=== PATIENT | female | born 1940 | race Caucasian/White ===

== ENCOUNTER 2023-04-16 09:33 | Outpatient (OUT) | payer MEDICARE, SELFPAY ==
--- NOTE | 2023-04-16 09:36 | XR_ITS ---
[address] [address] Patient Name: JEANNE WEEMS MRN: [id number] date: 1940 Sex: F Assigned Patient Location: RAD Current Patient Location: RAD Accession/Order Number: [id number] Exam Date: 04/16/2023 10:00 Report Date: 04/16/2023 10:31 At the request of: MORENA FELIPE Procedure: XR DEXA axial skeleton EXAMINATION: XR DEXA axial skeleton HISTORY: Osteoporosis M81.0 COMPARISON: DEXA bone densitometry 06/09/2020 TECHNIQUE: Dual-energy X-ray absorptiometry (DXA) was performed. FINDINGS: SPINE ANALYSIS: Average bone mineral density is 1.434 g/cm2. T-score (standard deviation relative to young adult mean): 2.1 . +4.6% change since prior study. HIP ANALYSIS: Lowest bone mineral density is within the left femoral neck, 1.009 g/cm2. T-score (standard deviation relative to young adult mean): -0.2 . -0.6% change since prior study. XR/XR DEXA axial skeleton IMPRESSION: [employer] Classification: Normal - Low Fracture Risk Electronically authenticated by: KAMRAN MONTENEGRO Date: 04/16/2023 10:31
== END 2023-04-16 09:34 | disposition home or self-care (01) ==
LOC: RAD 09:33
PROVIDERS: PCP Internal Medicine; Visit Provider Internal Medicine
DX: M81.0 Age-related osteoporosis without current pathological fracture (principal)
CPT/HCPCS: 77080

== ENCOUNTER 2023-06-21 09:33 | Outpatient (OUT) | payer MEDICARE, MEDICAID, SELFPAY ==
--- NOTE | 2023-06-21 09:38 | US_ITS ---
The [address] [address] Patient Name: JEANNE WEEMS MRN: [id number] date: 1940 Sex: F Assigned Patient Location: US Current Patient Location: Accession/Order Number: [id number] Exam Date: 06/21/2023 09:45 Report Date: 06/22/2023 16:35 At the request of: AGNES BRIGGS Procedure: US renal BI EXAM: Renal and bladder ultrasound CLINICAL INDICATION: Renal Cyst N28.1, Personal History Of Kidney Cancer Z85.528. COMPARISON: MRI dated 05/25/2022 TECHNIQUE: Grayscale and color Doppler imaging was obtained of both kidneys. FINDINGS: RIGHT: Mild right hydronephrosis. Cortical echogenicity and thickness is preserved. The kidney measures 8.5 cm length. No sonographically evident renal calculi. Hyperechoic right renal parenchyma lesion measures up to 7 mm. 1 cm right renal cyst. LEFT: No hydronephrosis. Cortical echogenicity and thickness is preserved. The kidney measures 12.8 cm length. No sonographically evident renal calculi. Hyperechoic left renal parenchyma lesion measuring up to 7 mm in maximal dimension. Additional hypoechoic left renal parenchymal lesion measuring up to 8 mm in maximal dimension. Bladder: No obvious sonographic abnormality. US/US renal BI IMPRESSION: 1. Mild right hydronephrosis. 2. 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 Electronically authenticated by: MARIALUISA HSIEH Date: 06/22/2023 16:35
== END 2023-06-21 09:34 | disposition home or self-care (01) ==
LOC: US 09:33
PROVIDERS: PCP Internal Medicine; Visit Provider Urology
DX: N28.1 Cyst of kidney, acquired (principal); Z85.528 Personal history of other malignant neoplasm of kidney; Q62.5 Duplication of ureter; N13.30 Unspecified hydronephrosis; R93.421 Abnormal radiologic findings on diagnostic imaging of right kidney; R93.422 Abnormal radiologic findings on diagnostic imaging of left kidney
CPT/HCPCS: 76775

== ENCOUNTER 2023-07-23 06:40 | Day surgery (SDC) | payer MEDICARE, MEDICAID, SELFPAY ==
--- NOTE | 2023-07-23 08:15 | P.URON_ITS ---
Urology Surgery Operative Note Operative Note Procedure Date: 07/23/23 Time Out Performed: yes Pre-op Diagnosis: recurrent urinary infections. Post-op Diagnosis: same as pre-op Procedures performed: #1. Cystoscopy. Anesthesia: local Primary Surgeon: Angel Bob Complications: none Estimated blood loss (mL): 0 Findings: bladder with no tumors. oPEN DDIVERTICULI. nO kwan. gRADE 2 rectocele. Specimens: NONE Indications for Procedures: THIS LADY HAS BEEN GETTING RECURRENT URINARY INFECTIONS. She has had a few courses of antibiotics. Currently, and she is without infection and symptom free. sHE NOW PRESENTS FOR CYSTOSCOPY AND POSSIBLE URETHRAL DILATION. She salcido signed an informed consent after risks were explained. Detailed description of Procedure: patient was kept on the gurney bed and brought into the endoscopy suite. She was in the supine position. hER LEGS WERE FROG LEGGED. Her perineum and genitalia were sterilely prepped and draped in the usual fashion. tIMEOUT WAS done by all parties in the room. wE ALL AGREED UPON THE PATIENT'S IDENTIFICATION AND THE PLANNED PROCEEDURES FOR THIS PATIENT. 2 PERCEENT LIDOCAINE WAS PASSED PER UR ETHRA. i STARTED BY PASSING A FLEXIBLE CYSTOSCOPE PER URETHRA AND INTO THE BLADDER. The urethra was unremarkable. pANENDOSCOPY IN THE BLADDER SHOWED NO EVIDENCE OF ANY TUMORS OR STONES. There were no mucosal lesions noted. She had open diverticuli. Her bladder wall appeared very thin. There were no cystitis cystica lesions noted. The scope was then removed. With Valsalva maneuver she had no KWAN. sHE HAS A GRADE 2 rectocele. sHE DOES NOT HAVE ANY ATROPHIC VAGINITIS. She was then discharged to home.
[2023-07-23 08:16] VITALS: BP 170/80; BP 171/75; PULSE 74; PULSE 84; RESP 18; O2SAT 94; O2SAT 95
[2023-07-23] MEDS: LIDOCAINE 2% JELLY 10 ML UR ×2 (08:30)
== END 2023-07-23 08:30 | disposition home or self-care (01) ==
PROVIDERS: PCP Internal Medicine; Visit Provider Urology
PROC: (CPT 52000; principal; 2023-07-23 07:45)
DX: N13.30 Unspecified hydronephrosis (principal); N28.1 Cyst of kidney, acquired; E11.9 Type 2 diabetes mellitus without complications; J45.909 Unspecified asthma, uncomplicated; I10 Essential (primary) hypertension; R39.9 Unspecified symptoms and signs involving the genitourinary system; Z87.440 Personal history of urinary (tract) infections; N81.6 Rectocele; N32.3 Diverticulum of bladder
CPT/HCPCS: 52000

== ENCOUNTER 2023-11-20 11:03 | Outpatient (OUT) | payer MEDICARE, MEDICAID, SELFPAY ==
--- NOTE | 2023-11-20 11:08 | MR_ITS ---
The [place] [id number] Patient Name: JEANNE WEEMS MRN: [id number] date: 1940 Sex: F Assigned Patient Location: MRI Current Patient Location: MRI Accession/Order Number: [id number] Exam Date: 11/20/2023 11:30 Report Date: 11/20/2023 13:35 At the request of: LALITO CASH Procedure: MR knee LT wo con EXAM: MR knee LT wo con REASON FOR EXAM: Internal Derangement Of Left Knee. TECHNIQUE: Multiplanar, multisequence imaging of the left knee was performed without contrast COMPARISON: Radiograph 11/21/2021. FINDINGS: Laterally, the iliotibial band, fibular collateral ligament, popliteus tendon and biceps tendon are intact. The ACL is intact. The lateral meniscus demonstrates free edge radial tear of the lateral meniscal body propagating is horizontal tear into the posterior horn. Intermediate grade chondrosis of the lateral compartment. Medially, the medial collateral ligament is bowed with periligamentous edema, likely reactive. The PCL is intact. Diffuse globular intrasubstance signal is present involving the medial meniscus. There is incomplete radial tear involving the posterior horn near the root horn attachment. Probable displaced meniscal fragment is noted within the posterior intercondylar notch. Diffuse high-grade chondrosis of the medial compartment. The extensor mechanism is intact. Intermediate to high-grade chondrosis of the patellofemoral cartilage. The bone marrow signal is without fracture. Small joint effusion with synovial thickening is present consistent with synovitis. This decompresses into a partially ruptured Courtney's cyst. The regional musculature is without muscle strain or tendon tear. MR/MR knee LT wo con IMPRESSION: 1. Near complete radial tear of the posterior horn root attachment of the medial meniscus. 2. Lateral meniscus tear. 3. 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 4. Joint effusion, synovitis and partially ruptured Courtney's cyst Electronically authenticated by: ANA MARKHAM Date: 11/20/2023 13:35
== END 2023-11-20 11:04 | disposition home or self-care (01) ==
LOC: MRI 11:03
PROVIDERS: PCP Internal Medicine; Visit Provider Orthopaedic Surgery
DX: M23.92 Unspecified internal derangement of left knee (principal); S83.242A Other tear of medial meniscus, current injury, left knee, initial encounter; S83.282A Other tear of lateral meniscus, current injury, left knee, initial encounter; M25.462 Effusion, left knee
CPT/HCPCS: 73721

== ENCOUNTER 2024-07-18 11:27 | Outpatient (OUT) | payer MEDICARE, MEDICAID, SELFPAY ==
--- OUTSIDE RECORDS SUMMARY | 2024-07-18 11:35 | XMS_ITS | CCD ---
Author Organization [facility] CliniSyvt Care Team Providers Care Station Agent Name Role Phone EDUARDO ROSEN Primary Care Physician [phone] DR EDUARDO ROSEN Primary Care Unavailable DESTINEE, DR BERG Consulting Unavailable DESTINEE, DR BERG Attending Unavailable DESTINEE, DR BERG Admitting Unavailable DESTINEE, DR BERG Primary Care Unavailable DESTINEE, DR BERG Attending Unavailable DESTINEE, DR BERG Admitting Unavailable BRIGITTE ., DR ALARCON Admitting Unavailable BRIGGS ., DR ALARCON Consulting Unavailable BRIGGS ., DR ALARCON Attending Unavailable DESTINEE, DR BERG Primary Care Unavailable SIS, DR ONEIL Lee Consulting Unavailable ZIEBER, DR KAMRAN Charles Consulting Unavailable LLOYD ., ADRIEL Admitting Unavailable LLOYD ., ADRIEL Attending Unavailable DESTINEE, DR BERG Primary Care Unavailable LLOYD ., ADRIEL Consulting Unavailable DESITNEE, DR BERG Primary Care Unavailable SHAILESH, DR Samir Berumen Admitting Unavailable SHAILESH, DR Samir Berumen Consulting Unavailable SHAILESH, DR Samir Berumen Attending Unavailable SIS, DR ONEIL Lee Consulting Unavailable VIERA ., DR CHIOMA Cazares Admitting Unavailable VIERA ., DR CHIOMA Cazares Attending Unavailable LLOYD ., ADRIEL Consulting Unavailable DESTINEE, DR BERG Primary Care Unavailable DESTINEE, DR BERG Primary Care Unavailable DESTINEE, DR BERG Attending Unavailable DESTINEE, DR BERG Admitting Unavailable DESTINEE, DR BERG Primary Care Unavailable SHAILESH, DR Samir Berumen Admitting Unavailable SHAILESH, DR Samir Berumen Consulting Unavailable SHAILESH, DR Samir Berumen Attending Unavailable Ernesto Duarte Unavailable [phone] Eduardo Rosen MD Unavailable Eduardo Rosen MD Primary Care Provider Eduardo Rosen MD Primary Care Provider [phone] EDUARDO ROSEN Referring Unavailable EDUARDO ROSEN Primary Care Unavailable LALITO ECHEVERRIA Attending Unavailable SHAILESH, LALITO Berumen Referring Unavailable ROSEN, EDUARDO B Primary Care Unavailable SHAILESH, LALITO Berumen Referring Unavailable ROSEN, EDUARDO B Primary Care Unavailable SHAILESH, LALITO Berumen Admitting Unavailable SHAILESH, LALITO Berumen Attending Unavailable SHAILESH, LALITO Berumen Referring Unavailable ROSEN, EDUARDO B Primary Care Unavailable CHARLY METZGER Attending Unavailable ROSEN, EDUARDO B Primary Care Unavailable SHAILESH, LALITO Berumen Attending Unavailable SHAILESH, LALITO Berumen Referring Unavailable ROSEN, EDUARDO B Primary Care Unavailable ROSEN, EDUARDO B Attending Unavailable SHAILESH, LALITO Berumen Attending Unavailable APLING, ANNA Ruggiero Referring Unavailable BROWN, OZZIE Berumen Attending Unavailable SHAILESH, LALITO Berumen Attending Unavailable APLING, ANNA Ruggiero Attending Unavailable BROWN, OZZIE Berumen Attending Unavailable APLING, ANNA Ruggiero Attending Unavailable BROWN, OZZIE Berumen Attending Unavailable APLING, ANNA Ruggiero Attending Unavailable ROSEN, EDUARDO Ruggiero Attending Unavailable APLING, ANNA Ruggiero Attending Unavailable BROWN, OZZIE Berumen Attending Unavailable ROSEN, EDUARDO Ruggiero Attending Unavailable SHAILESH, LALITO Berumen Attending Unavailable Angel BRIGGS Attending Unavailable Angel BRIGGS Attending Unavailable Angel BRIGGS Attending Unavailable Allergies Allergy Classification Reported Allergen(s) Allergy Type Date of Onset Reaction(s) Facility (16 sources) HYDROmorphone; Translations: [hydromorphone] Drug Allergy 8 Unknown (qualifier value) [facility] (16 sources) Morphine; Translations: [morphine] Drug Allergy 8 Unknown (qualifier value) [facility] (3 sources) Penicillin; Translations: [penicillin] Drug Allergy Unknown (qualifier value), Eruption of skin (disorder) [facility] (2 sources) gabapentin Drug Allergy 4 [facility] (1 source) HYDROmorphone Drug Allergy 6 [facility] (2 sources) Morphine Drug Allergy 4 [facility] (3 sources) Penicillins; Translations: [PENICILLINS] Drug allergy (disorder) 4 [facility] (11 sources) Omeprazole Drug Allergy 3 [facility] (11 sources) Penicillin G Drug Allergy 3 [facility] (1 source) Penicillins Propensity to adverse reactions to drug 8 [facility] Medications Current Medications Medication Drug Class(es) Dates Sig (Normalized) Sig (Original) Abrysvo 120 MCG/0.5ML reconstituted solution (6 sources) Start: 06-22-2023 Abrysvo 120 MCG/0.5ML reconstituted solution 06/22/2023 Active acetaminophen 500 mg oral tablet (11 sources) acetaminophen (Tylenol Extra Strength) 500 MG tablet every 6 (six) hours. Active amLODIPine 2.5 mg oral tablet (14 sources) Dihydropyridine Calcium Channel Alexia Start: 08-23-2018 take 1 tablet by mouth once daily amLODIPine (Norvasc) 2.5 MG tablet Indications: Fatty liver TAKE 1 TABLET BY MOUTH DAILY 90 tablet 3 11/05/2023 Active PreserVision (2 sources) Vitamin C Start: 08-04-2019 PreserVision Oral, Daily, Refill(s) 0 Start Date: 08/04/19 Status: Ordered aspirin 81 mg oral tablet (14 sources) Platelet Aggregation Inhibitor, Nonsteroidal Anti-inflammatory Drug Start: 08-04-2019 take 1 mg by mouth once daily aspirin 81 mg oral tablet mg tab(s), Oral, Daily, Refills(s) 0 Start Date: 08/04/19 Status: Ordered take 1 tablet by mouth in the mo rning aspirin 81 MG EC tablet Take 81 mg by mouth in the morning. Active Calcium Carbonate-Vit D-Min (CALTRATE 600+D PLUS MINERALS PO) (11 sources) take 1 capsule by mo ut once in the morning Calcium Carbonate-Vit D-Min (CALTRATE 600+D PLUS MINERALS PO) Take 1 capsule by mouth in the morning and 1 capsule before bedtime. Active take 1 capsule by mo uth once in the morning Calcium Carbonate-Vit D-Min (CALTRATE 60 0+D PLUS MINERALS PO) Take 1 capsule by mouth in the morning and 1 capsule before bedtime. 0 Active calcium citrate 950 mg oral tablet (2 sources) Start: 08-04-2019 take 1 mg by mouth twice daily calcium (as calcium citrate) 200 mg oral tablet mg tab(s), Oral, BID, Refills(s) 0 Start Date: 08/04/19 Status: Ordered cinnamon bark 500 mg oral capsule (12 sources) cinnamon 500 MG capsule Active take 1 tablet by mouth in the mo rning cinnamon bark (CINNAMON ORAL) Take 1 tablet by mouth in the morning. 0 Active Cod Liver Oil 5000-500 UNIT/5ML oil (11 sources) take 1 tablet by debbie th in the morning Cod Liver Oil 5000-500 UNIT/5ML oil Take 1 tablet by mouth in the morning. Active take 1 tablet by mouth in the mo rning Cod Liver Oil 5000-500 UNIT/5ML oil Take 1 tablet by mouth in the morning. 0 Active cod liver oil oil (1 source) take 1 tablet by mouth once daily cod liver oil oil Take 1 tablet by mouth daily. 0 Active dapagliflozin 5 mg oral tablet (15 sources) Sodium-Glucose Cotransporter 2 Inhibitor Start: 07-24-20 23 take 1 tablet by mouth once daily Farxiga 5 MG Indications: Type 2 diabetes mellitus with hypoglycemia without coma, without long-term current use of insulin (CMS/HCC) TAKE 1 TABLET BY MOUTH DAILY 90 tablet 3 07/24/2023 Active Start: 08-02-2020 Farxiga Oral, Daily Start Date: 08/02/20 Status: Ordered dexlansoprazole 60 mg delayed release oral capsule (13 sources) Proton Pump Inhibitor Start: 11-05-2023 take 1 capsule by mouth once daily Dexilant [address] capsule Indications: Gastroesophageal reflux disease without esophagitis TAKE 1 CAPSULE BY MOUTH DAILY 90 capsule 3 11/05/2023 Active take 1 tablet by mouth in the mo rning dexlansoprazole (DEXILANT ORAL) Take 1 tablet by mouth in the morning. 0 Active take 1 capsule by mouth once hoa ly Dexilant 60 MG TAKE 1 CAPSULE BY MOUTH DAILY Oral for 90 Days Active docosahexaenoic acid 120 mg / eicosapentaenoic acid 180 mg oral capsule (11 sources) take 1 capsule by mouth in the morning omega-3 (fish oil) 1000 MG capsule Take 2 g by mouth in the morning. Active 0.85 ml exenatide 2.35 mg/ml auto-injector (12 sources) GLP-1 Receptor Agonist Start: 09-26-19 24 exenatide ER (Byjohnny Robles) 2 MG/0.85ML pen Indications: Type 2 diabetes mellitus with hypoglycemia without coma, without long-term current use of insulin (CMS/HCC) INJECT SUBCUTANEOUSLY ONCE A WEEK for 90 days 10.2 mL 3 09/26/2023 Active Fish Oils (2 sources) Start: 08-04-20 Fish Oil Oral, Refill(s) 0 Start Date: 08/04/19 Status: Ordered gabapentin 300 mg oral capsule (14 sources) Anti-epileptic Agent Start: 11-05-19 take 1 capsule by mouth at bedtime gabapentin (Neurontin) 300 MG capsule Indications: Strain of muscle, fascia and tendon of lower back, initial encounter TAKE 1 CAPSULE BY MOUTH AT BEDTIME 90 capsule 3 11/05/2023 Active Start: 06-25-2023 gabapentin 300 mg Cap Refills(s) 0 Start Date: 06/25/23 Status: Ordered take 1 capsule by mo uth at bedtime Gabapentin 300 MG TAKE 1 CAPSULE BY MOUTH AT BEDTIME Oral for 90 Days Active irbesartan 300 mg oral tablet (14 sources) Angiotensin 2 Receptor Alexia Start: 01-21-2024 take 1 tablet by mouth once daily irbesartan (Avapro) 300 MG tablet Indications: Essential (primary) hypertension (CMS/HCC) TAKE 1 TABLET BY MOUTH DAILY 90 tablet 3 01/21/2024 Active Start: 08-23-2018 irbesartan 300 mg Tab Refills(s) 0 Start Date: 06/25/23 Status: Ordered levothyroxine sodium 0.1 mg oral tablet (15 sources) l-Thyroxine Start: 01-21-2024 take 1 tablet by mouth once daily levothyroxine (Synthroid, Levoxyl) 100 MCG tablet Indications: Hypothyroidism, acquired, autoimmune (CMS/HCC) TAKE 1 TABLET BY MOUTH DAILY 90 tablet 3 01/21/2024 Active Start: 08-04-2019 levothyroxine Daily, Refills(s) 0 Start Date: 08/04/19 Status: Ordered Start: 08-23-2018 take 1 tablet by debbie th in the morning levothyroxine (SYNTHROID, LEVOTHROID) 100 MCG tablet Take 1 tablet (100 mcg total) by mouth in the morning. 0 08/23/2018 Active Levothyroxine So dium 100 MCG Oral for 90 Days Active metFORMIN hydrochloride 1000 mg oral tablet (15 sources) Biguanide Start: 01-21-2024 take 1 tablet by mouth twice daily metFORMIN (Glucophage) 1000 MG tablet Indications: Type 2 diabetes mellitus with hypoglycemia without coma (CMS/HCC) TAKE 1 TABLET BY MOUTH TWICE DAILY 180 tablet 3 01/21/2024 Active Start: 08-04-2019 metformin Oral , Refills(s) 0 Start Date: 08/04/19 Status: Ordered take 1 tablet by debbie th in the morning, then take 1 tablet by mouth at mealtime metFORMIN (GLUCOPHAGE) 1000 mg tablet Take 1 tablet (1,000 mg total) by mouth in the morning and 1 tablet (1,000 mg total) in the evening. Take with meals. 0 Active montelukast 10 mg oral tablet (15 sources) Leukotriene Receptor Antagonist Start: 08-04-2019 Singulair Daily, Refills(s) 0 Start Date: 08/04/19 Status: Ordered Start: 08-23-2018 take 1 tablet by debbie th once daily montelukast (Singulair) 10 MG tablet Indications: Asthma, unspecified asthma severity, unspecified whether complicated, unspecified whether persistent (CMS/HCC) TAKE 1 TABLET BY MOUTH DAILY 90 tablet 3 07/24/2023 Active omega-3 fatty acids-fish oil (FISH OIL) 300-1,000 mg capsule (1 source) take 2 capsules by mouth in the morning omega-3 fatty acids-fish oil (FISH OIL) 300-1,000 mg capsule Take 2 capsules (2 g total) by mouth in the morning. 0 Active simvastatin 40 mg oral tablet (15 sources) HMG-CoA Reductase Inhibitor Start: 4 take 1 tablet by mouth at bedtime simvastatin (Zocor) 40 MG tablet Indications: Mixed hyperlipidemia (CMS/HCC) TAKE 1 TABLET BY MOUTH AT BEDTIME 90 tablet 3 01/21/2024 Active Start: 08-04-2019 simvastatin Or al, Refills(s) 0 Start Date: 08/04/19 Status: Ordered Start: 08-23-2018 take 1 tablet by debbie th in the morning simvastatin (ZOCOR) 40 mg tablet Take 1 tablet (40 mg total) by mouth in the morning. 0 08/23/2018 Active Januvia (1 source) Dipeptidyl Peptidase 4 Inhibitor Start: 08-04-2019 Januvia Oral, Daily, Refill(s) 0 Start Date: 08/04/19 Status: Ordered [id number]-yuc -tjd-jxre-jab [phone] mg tablet (1 source) qnmr-pqrh-yct-estes c -qfv-qfzo-mxm [id number] mg tablet Take by mouth. 0 Active turmeric extract 500 mg oral capsule (11 sources) take 1 capsule by mouth in the morning Turmeric (QC Tumeric Complex) 500 MG capsule Take 1 capsule by mouth in the morning. Active take 1 capsule by mouth in the m orning Turmeric (QC Tumeric Complex) 500 MG capsule Take 1 capsule by mouth in the morning. 0 Active Completed/Discontinued Medications Medication Drug Class(es) Dates Sig (Normalized) Sig (Original) ciprofloxacin 500 mg oral tablet (1 source) Quinolone Antimicrobial Start: 06-25-2023 take 1 tablet by mouth once daily Cipro 500 mg Tab 500 mg = 1 tab(s), Oral, Daily, Take 1 tablet the day before the procedure and 1 tablet after the procedure, # 2 tab(s), Refills(s) 0, Pharmacy: [id number], 157.5, cm, 06/25/23 10:13:00 EDT, Height/Length Dosing, 82, kg, 06/25/23 10:13:00 EDT, Weight Dosing Start Date: 06/25/23 Status: Ordered exenatide microspheres (BYDUREON SUBQ) (1 source) End: 11-28-2023 exenatide microspheres (BYDUREON SUBQ) Inject under the skin once a week. wednesdays 0 11/28/2023 Discontinued fluticasone propionate 0.05 mg/actuat metered dose nasal spray (1 source) Corticosteroid Start: 06-25-2018 End: 11-28-2023 fluticasone (FLONASE) 50 mcg/actuation nasal spray Administer 1 spray into each nostril as needed. 0 06/25/2018 11/28/2023 Discontinued Problems Active Problems Problem Classification Problem Date Documented Date Episodic/Chronic Asthma (13 sources) Asthma; Translations: [Mild intermittent asthma] Onset: 03-06-2023 08-04-2019 Chronic Cancer of kidney and renal pelvis (2 sources) History of malignant neoplasm of kidney; Translations: [Personal history of other malignant neoplasm of kidney] Onset: 06-23-2022 Episodic Cancer; other and unspecified primary (2 sources) H/O: malignant neoplasm 08-02-2020 Episodic Coagulation and hemorrhagic disorders (11 sources) Thrombocytopenic disorder; Translations: [Thrombocytopenia, unspecified] Onset: 03-06-2023 03-06-2023 Chronic Diabetes mellitus with complications (20 sources) Type 2 diabetes mellitus with hyperglycemia; Translations: [Type 2 diabetes mellitus with hypoglycemia without coma] Onset: 06-02-2022 Chronic Diabetes mellitus without complication (4 sources) Diabetes mellitus; Translations: [Type 2 diabetes mellitus without complication] Onset: 11-28-2023 08-04-2019 Chronic Diabetes mellitus without complication (4 sources) Glycosuria; Translations: [Glycosuria] Onset: 06-23-2022 Episodic Disorders of lipid metabolism (13 sources) Mixed hyperlipidemia; Translations: [Mixed hyperlipidemia] Onset: 03-06-2023 03-06-2023 Chronic Diverticulosis and diverticulitis (11 sources) Diverticulosis of large intestine; Translations: [Diverticulosis of large intestine without perforation or abscess without bleeding] Onset: 03-06-2023 03-06-2023 Chronic Esophageal disorders (11 sources) Gastroesophageal reflux disease; Translations: [Gastro-esophageal reflux disease without esophagitis] Onset: 03-06-2023 03-06-2023 Chronic Essential hypertension (17 sources) Hypertensive disorder; Translations: [Benign essential hypertension] Onset: 03-06-2023 08-04-2019 Chronic Genitourinary congenital anomalies (4 sources) Double ureter; 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] Onset: 06-23-2022 Chronic Genitourinary symptoms and ill-defined conditions (2 sources) Genitourinary symptoms; Translations: [Unspecified symptoms and signs involving the genitourinary system] Onset: 06-25-2023 Episodic Immunizations and screening for infectious disease (2 sources) Needs influenza immunization; Translations: [Encounter for immunization] 06-30-2024 Episodic Joint disorders and dislocations; trauma-related (2 sources) Derangement of left knee; Translations: [Unspecified internal derangement of left knee] 11-06-2023 Chronic Menopausal disorders (11 sources) Primary ovarian failure; Translations: [Other primary ovarian failure] Onset: 03-06-2023 03-06-2023 Chronic Mycoses (3 sources) Onychomycosis; Translations: [Tinea unguium] 11-07-2023 Episodic Osteoarthritis (20 sources) Degenerative joint disease of hand; Translations: [Bilateral primary osteoarthritis of first carpometacarpal joints] Onset: 09-25-2018 Resolved: 09-28-2023 03-06-2023 Chronic Osteoporosis (11 sources) Osteoporosis; Translations: [Age-related osteoporosis without current pathological fracture] Onset: 03-06-2023 03-06-2023 Chronic Other connective tissue disease (1 source) Presence of right artificial knee joint; Translations: [PRESENCE RT ARTIFICIAL KNEE JOINT] Onset: 07-23-2022 Chronic Other connective tissue disease (11 sources) History of total knee arthroplasty; Translations: [Presence of right artificial knee joint] Onset: 03-06-2023 03-06-2023 Chronic Other connective tissue disease (1 source) Pain of toes of bilateral feet; Translations: [Pain in right toe(s)] 11-07-2023 Episodic Other diseases of kidney and ureters (4 sources) Other specified disorders of kidney and ureter; Translations: [OTHER SPEC DISORDERS KIDNEY URETER] Onset: 05-25-2022 Chronic Other diseases of kidney and ureters (2 sources) Acquired renal cyst without neoplastic change; Translations: [Cyst of kidney, acquired] Onset: 06-23-2022 Episodic Other diseases of kidney and ureters (2 sources) Cyst of kidney 08-02-2020 Episodic Other diseases of kidney and ureters (2 sources) Hydronephrosis; Translations: [Unspecified hydronephrosis] Onset: 06-25-2023 Episodic Other diseases of veins and lymphatics (3 sources) Vascular insufficiency; Translations: [Venous insufficiency (chronic) (peripheral)] 11-07-2023 Episodic Other ear and sense organ disorders (11 sources) Sensorineural hearing loss, bilateral; Translations: [Sensorineural hearing loss, bilateral] Onset: 03-06-2023 03-06-2023 Chronic Other liver diseases (1 source) Fatty (change of) liver, not elsewhere classified; Translations: [FATTY CHANGE LIVER NEC] Onset: 06-09-2022 Chronic Other liver diseases (11 sources) Steatosis of liver; Translations: [Fatty (change of) liver, not elsewhere classified] Onset: 03-06-2023 03-06-2023 Chronic Other nervous system disorders (11 sources) Neuropathy; Translations: [Polyneuropathy, unspecified] Onset: 03-06-2023 03-06-2023 Chronic Other nervous system disorders (11 sources) Mononeuropathy of lower limb; Translations: [Unspecified mononeuropathy of unspecified lower limb] Onset: 07-02-2017 09-28-2023 Chronic Other non-traumatic joint disorders (2 sources) Pain in left knee; Translations: [Pain in joint, lower leg] 11-06-2023 Episodic Other nutritional; endocrine; and metabolic disorders (11 sources) Body mass index 30+ - obesity; Translations: [Obesity, unspecified] Onset: 03-06-2023 03-06-2023 Chronic Other upper respiratory disease (11 sources) Allergic rhinitis; Translations: [Allergic rhinitis, unspecified] Onset: 11-12-2008 03-06-2023 Chronic Peripheral and visceral atherosclerosis (2 sources) Peripheral vascular disease, unspecified; Translations: [PAD (peripheral artery disease)] Chronic Spondylosis; intervertebral disc disorders; other back problems (13 sources) Spondylosis without myelopathy or radiculopathy, lumbar region; Translations: [Other intervertebral disc degeneration, lumbar region] Onset: 02-03-2022 03-06-2023 Chronic Thyroid disorders (20 sources) Autoimmune hypothyroidism; Translations: [Autoimmune thyroiditis] Onset: 03-06-2023 Resolved: 09-28-2023 03-06-2023 Chronic Unclassified (2 sources) Drug therapy finding 08-04-2019 Unclassified (1 source) left knee meniscal tear Onset: 12-05-2023 Past or Other Problems Problem Classification Problem Date Documented Date Episodic/Chronic Hemorrhoids (11 sources) External hemorrhoids; Translations: [Residual hemorrhoidal skin tags] Onset: 03-06-2023 03-06-2023 Episodic Inflammation; infection of eye (except that caused by tuberculosis or sexually transmitteddisease) (11 sources) Allergic conjunctivitis; Translations: [Acute atopic conjunctivitis, unspecified eye] Onset: 11-12-2008 03-06-2023 Episodic Other congenital anomalies (11 sources) Sacralization of lumbar vertebra; Translations: [Other congenital malformations of spine, not associated with scoliosis] Onset: 03-06-2023 Resolved: 09-28-2023 09-28-2023 Chronic Other connective tissue disease (11 sources) Peripheral neuralgia; Translations: [Neuralgia and neuritis, unspecified] Onset: 03-06-2023 03-06-2023 Episodic Other non-traumatic joint disorders (4 sources) Pain in right knee; Translations: [PAIN IN RIGHT KNEE] Onset: 07-21-2022 Episodic Residual codes; unclassified (11 sources) History of partial nephrectomy; Translations: [Acquired absence of kidney] Onset: 03-06-2023 03-06-2023 Episodic Spondylosis; intervertebral disc disorders; other back problems (4 sources) Cervicalgia; Translations: [CERVICALGIA] Onset: 02-02-2022 Episodic Results Test Name Value Interpretation Reference Range Facility HbA1c (Bld) [Mass fraction][facility] n [facility]24 HbA1c (Bld) [Mass fraction] 6.1 % [facility] BASIC METABOLIC PANLon 11-27 Anion gap [Moles/Vol] 9 mmol/L Normal 5-15 [facility] Comment on above: Performed By: #### B MP #### [facility] ([id number]) [address] [place] [address], [address] [place] [address] Calcium [Mass/Vol] 9.7 mg/dL Normal 8.5-10.5 [facility] Comment on above: Performed By: #### B MP #### [facility] ([id number]) [address] [place] [address], [address] [place] [address] Chloride [Moles/Vol] 97 mmol/L Low 98-109 [facility] Comment on above: Performed By: #### B MP #### [facility] ([id number]) [address] [place] [address], [address] [place] [address] CO2 [Moles/Vol] 29 mmol/L Normal 22-32 [facility] Comment on above: Performed By: #### B MP #### [facility] ([id number]) [address] [place] [address], [address] [place] [address] Creatinine [Mass/Vol] 0.63 mg/dL Normal 0.40-1.00 [facility] Comment on above: Result Comment: METH OD TRACEABLE TO IDMS STANDARD Performed By: #### B MP #### [facility] ([id number]) [address] [address] [place] [address] GFR/1.73 sq M.predicted among non-blacks MDRD (S/P/Bld) [Vol rate/Area] 88 mL/min/{1.73_m2} Normal >59 [facility] Comment on above: Result Comment: Reported eGFR is based on the CKD-EPI 2020 equation that does not use a race coefficient. Performed By: #### B MP #### [facility] ([id number]) [address] [address] [place] [address] Glucose [Mass/Vol] 111 mg/dL High 65-99 [facility] Comment on above: Performed By: #### B MP #### [facility] ([id number]) [address] [address] [place] [address] Potassium [Moles/Vol] 4.3 mmol/L Normal 3.5-5.0 [facility] Comment on above: Performed By: #### B MP #### [facility] ([id number]) [address], [address] [place] [address] Sodium [Moles/Vol] 135 mmol/L Normal 134-146 [facility] Comment on above: Performed By: #### B MP #### [facility] ([id number]) [address] [address] [place] [address] Urea nitrogen [Mass/Vol] 21 mg/dL Normal 5-27 [facility] Comment on above: Performed By: #### B MP #### [facility] ([id number]) [address] [address] [place] [address] Basic Metabolic Panelon Anion gap [Moles/Vol] 9 mmol/L 5 - 15 mmol/L [facility] Calcium [Mass/Vol] 9.7 mg/dL 8.5 - 10. 5 mg/dL [facility] Chloride [Moles/Vol] 97 mmol/L Low 98 - 109 mmol/L [facility] CO2 [Moles/Vol] 29 mmol/L 22 - 32 mmol/L [facility] Creatinine [Mass/Vol] 0.63 mg/dL 0.40 - 1.00 mg/dL [facility] Comment on above: METHOD TRACEABLE TO [facility] STANDARD eGFR (CKD-EPI)non-race dependent 88 - PINF [facility] [facility] Comment on above: Reported eGFR is based on the CKD-EPI 2020 equation that does not use a race coefficient. Glucose [Mass/Vol] 111 mg/dL High 65 - 99 mg/dL [facility] Interpretation and review of laboratory results Abnormal [facility] Potassium [Moles/Vol] 4.3 mmol/L 3.5 - 5.0 mmol/L [facility] Sodium [Moles/Vol] 135 mmol/L 134 - 146 mmol/L [facility] Urea nitrogen [Mass/Vol] 21 mg/dL 5 - 27 mg/dL [facility] ECG 12 leadon 11-28-[address] [facility] Operative Reporton 3 Operative Report [id number] 0#[id number] Normal [facility] BONE IMAGE 3 PHASEon 06-25 NM BONE IMAGE 3 PHASE EXAMINATION: NM BONE IMAGE 3 PHASE HISTORY: Pain in right knee COMPARISON: 12/02/2020 TECHNIQUE: 25.0 mCi Technetium 99m MDP was injected intravenously followed by acquisition of dynamic flow, immediate blood pool, and delayed static images. FINDINGS: IMAGED AREA: Bilateral knees FLOW PHASE: Normal BLOOD POOL PHASE: Photopenia in the central right knee consistent with arthroplasty. DELAYED IMAGES: Photopenia in the central right knee consistent with arthroplasty. Increased activity in the femoral condyles and tibial plateau appear stable from the 2020 exam. OTHER: Negative. IMPRESSION: Stable exam with increased activity surrounding the right knee arthroplasty Electronically authenticated by: ONEIL ALEGRE Date: 2022-07-21 17:21 Normal [facility] CRPon 07-04-2022 CRP [Mass/Vol] mg/L Normal <=1.0 [facility] Comment on above: Performed By: #### C RP #### [facility] [address] [address] [address] Xenia Younger SED RATE [facility] 2021 SED RATE 11 mm/hr Normal <=30 [facility] Comment on above: Performed By: #### S EDR #### [facility] [address] [address] [address] Xenia Younger LIPID PROFILEon 06-02-2022 CHOL-HDL RATIO NORM SEE BELOW Normal [facility] Comment on above: Result Comment: 3.3 - 4.4 LOW RISK 4.4 - 7.1 AVERAGE RISK 7.1 - 11.0 MODERATE RISK >11.0 HIGH RISK Performed By: #### L IPID, TSH #### [facility] [address] [address] [address] Xenia Younger Cholesterol [Mass/Vol] 126 mg/dL Normal <=200 [facility] Comment on above: Performed By: #### L IPID, TSH #### [facility] [address] [address] [address] Xenia Younger Cholesterol in HDL [Mass/Vol] 56 mg/dL Normal 40-60 [facility] Comment on above: Performed By: #### L IPID, TSH #### [facility] [address] [address] [address] Xenia Younger Cholesterol in LDL [Mass/Vol] 44.2 mg/dL Normal [facility] Comment on above: Performed By: #### L IPID, TSH #### [facility] [address] [address] [address] Xenia Younger Cholesterol.total/C holesterol in HDL [Mass ratio] 2.3 {ratio} Normal [facility] Comment on above: Performed By: #### L IPID, TSH #### [facility] [address] [address] [address] Xenia Younger HDL NORMAL > or = 60 mg/dl - LOW CARDIOVASCULAR RISK <40 mg/dl - HIGH CARDIOVASCULAR RISK Normal [facility] Comment on above: Performed By: #### L IPID, TSH #### [facility] [address] [address] [address] Xenia Younger LDL CALC NORMAL SEE BELOW Normal [facility] Comment on above: Result Comment: <100 mg/dl OPTIMAL 100 - 129 mg/dl NEAR OR ABOVE OPTIMAL 130 - 159 mg/dl BORDERLINE HIGH 160 - 189 mg/dl HIGH >190 mg/dl VERY HIGH Performed By: #### L IPID, TSH #### [facility] [address] [address] [address] Xenia Younger Triglyceride [Mass/Vol] 129 mg/dL Normal <=150 [facility] Comment on above: Performed By: #### L IPID, TSH #### [facility] [address] [place] [address] Dr. Xenia Younger VLDL CALC 25.8 mg/dL Normal [facility] Comment on above: Performed By: #### L IPID, TSH #### [facility] [address] [place] [address] Dr. Xenia Younger TSHon 06-02-2022 TSH 0.630 uIU/mL Normal 0.358-3.740 [facility] Comment on above: Performed By: #### L IPID, TSH #### [facility] [address] [place] [address] Dr. Xenia Younger CREATININEon 05-25-2022 Creatinine [Mass/Vol] 0.75 mg/dL Normal 0.55-1.02 [facility] Comment on above: Performed By: #### C KARL #### [facility] [address] [place] [address] Dr. Xenia Younger EGFR-AF STATELESS >60 Normal >=60 [facility] Comment on above: Performed By: #### C KARL #### [facility] [address] [place] [address] Dr. Xenia Younger EGFR-NON AF STATELESS >60 Normal >=60 [facility] Comment on above: Performed By: #### C KARL #### [facility] [address] [place] [address] Dr. Xenia Younger MRI ABDOMEN WO W CONon 05-25 MRI ABDOMEN WO W CON EXAMINATION: MRI ABDOMEN WO W CON HISTORY: Disorder of kidney and/or ureter , renal mass COMPARISON: 12/24/2021 TECHNIQUE: A comprehensive examination was performed utilizing a variety of imaging planes and imaging parameters to optimize visualization of suspected pathology. Images were obtained both before and after intravenous 17 Dotarem infusion. FINDINGS: LIVER: No enlargement, atrophy, abnormal density, or significant focal lesion. BILIARY: The gallbladder is not visualized PANCREAS: No lesion, fluid collection, ductal dilatation, or atrophy. SPLEEN: No enlargement or focal lesion. KIDNEYS: Bilateral cortical lesions demonstrating increased T2 signal without postcontrast enhancement with 2 largest lesions measuring 7 mm inferior left kidney coronal image 21 and 9 mm posterior left kidney coronal image 17 measuring 9 mm along the inferior left kidney ADRENALS: No mass or enlargement. AORTA/VASCULAR: No aneurysm or dissection. RETROPERITONEUM: No mass or adenopathy. BOWEL/MESENTERY: No visible mass, obstruction, or bowel wall thickening. ABDOMINAL WALL: No mass or hernia. URINARY BLADDER: Normal. No visible focal wall thickening, lesion, or calculus. BONES: No bony lesion or fracture. LUNG BASES: No visible pleural disease. Lung bases not well assessed with MRI. OTHER: Negative. IMPRESSION: Subcentimeter renal cortical lesions without definitive postcontrast enhancement. Cysts are favored Electronically authenticated by: ONEIL ALEGRE Date: 2022-05-25 17:55 Normal [facility] XR CSPINE OBL FLEX_EXTon XR CSPINE OBL FLEX_EXT EXAMINATION: XR CSPINE OBL FLEX_EXT HISTORY: Pain in cervical spine for 2 weeks; no known injury COMPARISON: No relevant comparison available. FINDINGS: BONES: No fracture spondylolisthesis. Multilevel mild-moderate degenerative facet arthropathy. Prominent degenerative endplate changes involving C3, 4, and 5 vertebral bodies. Large anterior endplate osteophytes C3-4 and C4-5 which may interfere with swallowing function. DISC SPACES: Mild narrowing C3-4, C5-6, C6-7. Moderate narrowing C4-5. PARASPINOUS: Negative. No paraspinous abnormality is seen. OTHER: Negative. IMPRESSION: 1. No appreciable acute abnormality. 2. Multilevel moderate to marked degenerative changes. 3. Very large anterior endplate osteophyte projecting from C3-4 which may interfere with swallowing function. Electronically authenticated by: KAMRAN MONTENEGRO Date: 2022-02-02 16:55 Normal [facility] Vital Signs Date Time Vital Sign Value Performing Clinician Facility 07-17-2024 12:58-0400 Body height 157.5 cm Ozzie Morris DPM Work Phone: [facility] 07-17-2024 12:58-0400 Body mass index (BMI) [Ratio] 32.92 kg/m2 Ozzie Arturo DPM Work Phone: [facility] 07-17-2024 12:58-0400 Body weight 81.65 kg Ozzie Morris DPM Work Phone: [facility] 07-17-2024 12:58-0400 Diastolic blood pressure 75 mm[Hg] Ozzie Morris DPM Work Phone: [facility] 07-17-2024 12:58-0400 Heart rate 82 /min Ozzie Arturo DPM Work Phone: [facility] 07-17-2024 12:58-0400 Systolic blood pressure 125 mm[Hg] Ozzie Morris DPM Work Phone: [facility] 06-30-2024 13:33-0400 Body mass index (BMI) [Ratio] 32.78 kg/m2 Eduardo Rosen MD Work Phone: [facility] 06-30-2024 13:33-0400 Body weight 81.28 kg Eduardo Rosen MD Work Phone: [facility] 06-30-2024 13:33-0400 Diastolic blood pressure 80 mm[Hg] Eduardo Rosen MD Work Phone: [facility] 06-30-2024 13:33-0400 Heart rate 79 /min Eduardo Rosen MD Work Phone: [facility] 06-30-2024 13:33-0400 Respiratory rate 17 /min Eduardo Rosen MD Work Phone: [facility] 06-30-2024 13:33-0400 SaO2% (BldA) [Mass fraction] 95 % Eduardo Rosen MD Work Phone: [facility] 06-30-2024 13:33-0400 Systolic blood pressure 135 mm[Hg] Eduardo Rosen MD Work Phone: [facility] 11-28-2023 09:29-0500 Body height 157.5 cm [facility] 2 [facility] 11-28-2023 09:29-0500 Body mass index (BMI) [Ratio] 32.56 kg/m2 [facility] 2 [facility] 11-28-2023 09:29-0500 Body weight 80.74 kg [facility] 2 [facility] 11-08-2023 12:50-0500 Body height 157.5 cm Ozzie Morris DPM Work Phone: [facility] 11-08-2023 12:50-0500 Body mass index (BMI) [Ratio] 33.11 kg/m2 Ozzie Morris DPM Work Phone: [facility] 11-08-2023 12:50-0500 Body weight 82.1 kg Ozzie Morris DPM Work Phone: [facility] 11-08-2023 12:50-0500 Diastolic blood pressure 80 mm[Hg] Ozzie Morris DPM Work Phone: [facility] 11-08-2023 12:50-0500 Heart rate 88 /min Ozzie Morris DPM Work Phone: [facility] 11-08-2023 12:50-0500 Systolic blood pressure 130 mm[Hg] Ozzie Morris DPM Work Phone: [facility] 06-25-2023 10:11-0400 Blood Pressure Location Angel BRIGGS [facility] 06-25-2023 10:11-0400 Diastolic blood pressure 74 mm[Hg] Angel BRIGGS [facility] 06-25-2023 10:11-0400 Heart rate 68 /min Angel BRIGGS [facility] 06-25-2023 10:11-0400 Respiratory rate 16 /min Angel BRIGGS [facility] 06-25-2023 10:11-0400 Systolic blood pressure 130 mm[Hg] Angel BRIGGS [facility] 06-07-2023 11:00-0400 Body height 160.02 cm Ernesto Duarte Other [facility] Other 06-07-2023 11:00-0400 Body mass index (BMI) [Ratio] 31.53 kg/m2 Ernesto Duarte Other [facility] Other 06-07-2023 11:00-0400 Body temperature 97.8 [degF] Ernesto Duarte Other [facility] Other 06-07-2023 11:00-0400 Body weight 80.74 kg Ernesto Duarte Other [facility] Other 06-07-2023 11:00-0400 Diastolic blood pressure 72 mm[Hg] Ernesto Duarte Other [facility] Other 06-07-2023 11:00-0400 SaO2% (BldA) [Mass fraction] 98 % Ernesto Duarte Other [facility] Other 06-07-2023 11:00-0400 Systolic blood pressure 124 mm[Hg] Ernesto Duarte Other [facility] Other 06-23-2022 10:10-0400 Blood Pressure Location Angel BRIGGS [facility] 06-23-2022 10:10-0400 Diastolic blood pressure 78 mm[Hg] Angel BRIGGS [facility] 06-23-2022 10:10-0400 Heart rate 62 /min Angel BRIGGS [facility] 06-23-2022 10:10-0400 Respiratory rate 16 /min Angel BRIGGS [facility] 06-23-2022 10:10-0400 Systolic blood pressure 133 mm[Hg] Angel BRIGGS [facility] Encounters Encounter Date Encounter Type Care Provider Facility Start: 08-04-2024 ambulatory Angel Hurleyi ty:NICKI [place] Start: 07-17-2024 End: 07-17-2024 Bamboo flowsheet Ozzie Morris DPM Work Phone: [facility] Start: 07-17-2024 End: 07-17-2024 Bamboo flowsheet Ozzie Morris DPM Work Phone: [facility] Start: 07-17-2024 End: 07-17-2024 Patient encounter procedure Ozzie Morris DPM Work Phone: [facility] Comment on above: Diabetes mellitus du e to underlying condition with diabetic polyneuropathy, unspecified whether [employer] insulin use ([facility]) (Primary Dx); Pain due to onychomycosis of toenails of both feet; Venous insufficiency Start: 06-30-2024 End: 06-30-2024 Bamboo flowsheet Eduardo Rosen MD Work Phone: [facility] Start: 06-30-2024 End: 06-30-2024 Bamboo flowsheet Eduardo Rosen MD Work Phone: [facility] Start: 06-30-2024 End: 06-30-2024 Office outpatient visit 25 minutes Eduardo Rosen MD Work Phone: [facility] Comment on above: Benign essential hyp ertension (CMS/HCC) (Primary Dx); Type 2 diabetes mellitus with hypoglycemia without coma, without long-term current use of insulin (CMS/[facility]); Flu vaccine need; Mixed hyperlipidemia (CMS/[facility]); Primary osteoarthritis of both knees Start: 06-30-2024 End: 06-30-2024 ambulatory EDUARDO ROSEN Not Available Start: 06-30-2024 ambulatory Angel Araceli Zhong ty:NICKI [place] Start: 05-01-2024 End: 05-01-2024 ambulatory OZZIE MORRIS Not Available Start: 03-12-2024 End: 03-12-2024 ambulatory ANNA B APLING Not Available Start: 02-27-2024 End: 02-27-2024 ambulatory EDUARDO ROSEN Not Available Start: 02-04-2024 End: 02-04-2024 ambulatory ANNA B APLING Not Available Start: 01-17-2024 End: 01-17-2024 ambulatory OZZIE MORRIS Not Available Start: 01-14-2024 End: 01-14-2024 ambulatory ANNA B APLING Not Available Start: 12-12-2023 End: 12-12-2023 ambulatory ANNA B APLING Not Available Start: 12-06-2023 End: 12-06-2023 Evaluation and management of inpatient CHARLY Jason YASSINE [facility] Start: 12-05-2023 End: 12-06-2023 Evaluation and management of inpatient [facility] Start: 12-05-2023 End: 12-05-2023 Evaluation and management of inpatient [facility] Start: 11-28-2023 End: 11-29-2023 ambulatory [facility] Start: 11-28-2023 Encounter for other preprocedural examination EDUARDO ROSEN [facility] Start: 11-28-2023 End: 11-28-2023 Patient encounter procedure [facility] Pre-Admission Testing 2 [facility] - Pre Admit Comment on above: Preop examination (P rimary Dx); Hypertension, unspecified type; Type 2 diabetes mellitus without complication, unspecified whether nursing home insulin use ([facility]) Start: 11-28-2023 End: 11-28-2023 Preprocedural examination done [facility] 2 [facility] Start: 11-27-2023 End: 11-27-2023 ambulatory LALITO ECHEVERRIA Not Available Start: 11-08-2023 Chart abstracting Ozzie kamara DPM Work Phone: [facility] Start: 11-08-2023 End: 11-08-2023 Patient encounter procedure Ozzie Morris DPM Work Phone: [facility] Comment on above: Diabetes mellitus du e to underlying condition with diabetic polyneuropathy, unspecified whether nursing home insulin use ([facility]) (Primary Dx); Onychomycosis; Toe pain, bilateral; Venous insufficiency Start: 11-08-2023 End: 11-08-2023 ambulatory OZZIE MORRIS Not Available Start: 11-06-2023 Chart abstracting Lalito trivedi DO Work Phone: [facility] Start: 11-06-2023 End: 11-06-2023 Office outpatient visit 10 minutes Lalito Echeverria DO Work Phone: [facility] Comment on above: Left knee pain, unsp ecified chronicity (Primary Dx); Arthritis of left knee; Internal derangement of left knee Start: 11-06-2023 End: 11-06-2023 ambulatory LALITO ECHEVERRIA Not Available Start: 09-28-2023 End: 09-28-2023 ambulatory EDUARDO ROSEN Not Available Start: 09-11-2023 End: 09-11-2023 ambulatory LALITO ECHEVERRIA Not Available Start: 08-30-2023 End: 08-30-2023 ambulatory OZZIE MORRIS Not Available Start: 08-01-2023 End: 08-01-2023 ambulatory ANNA QUINONES Not Available Start: 07-23-2023 End: 07-23-2023 ambulatory Angel BRIGGS Facility:[id number] Start: 06-25-2023 End: 06-25-2023 Patient encounter procedure Angel BRIGGS [facility] Start: 06-07-2023 End: 06-07-2023 ambulatory Ernesto Duarte Other [facility] Other Start: 06-07-2023 FQHC visit new patient Ernesto basseddy [facility] Vascular Surgery Start: 01-25-[address] EDUARDO ROSEN Facilit y:[facility] Start: 07-21-2022 End: 07-22-[address] EDUARDO ROSEN Facility:[facility] Start: 07-04-2022 End: 07-05-[address] EDUARDO ROSEN Facility:[facility] Start: 06-23-2022 End: 06-23-2022 Patient encounter procedure Angel BRIGGS [facility] Start: 06-02-2022 End: 06-03-[address] EDUARDO ROSEN Facility:[facility] Start: 05-25-2022 End: 05-26-[address] EDUARDO ROSEN Facility:[facility] Start: 02-02-2022 End: 02-03-[address] KAMRAN MONTENEGRO Facility:[facility] Start: 02-02-2022 End: 02-03-[address] CHIOMA VIERA . Facility: Procedures Date Procedure Procedure Detail Performing Clinician Start: 06-30-2024 Hemoglobin glycosylated a1c Eduardo Rosen MD Work Phone: Start: 02-10-2013 Cystoscopy Angel SIMMONS Start: 09-24-2003 Specimen from right kidney obtained by partial nephrectomy (specimen) Angel BRIGGS Arthroplasty of knee Angel BRIGGS Comment on above: Rt Cholecystectomy Angel CABRERA Excision of colon Angel SIMMONS History of arthrosco py of knee joint Angel BRIGGS Urinary bladder stru cture (body structure) Angel BRIGGS Plan of Treatment Date Care Activity Detail Author Start: 03-12-2025 Urine screening for protein Diabetes: Urine Protein Screening [facility] Start: 11-27-2024 Adult BMI Screening Adult BMI Screen ing [facility] Start: 11-27-2024 Tobacco Screening Tobacco Screening [facility] Start: 11-03-2024 End: 11-03-2024 Patient encounter procedure 11/03/2024 2:00 PM EST Office Visit [facility] [address] [facility] [address] [place] [address] Eduardo Rosen MD [address] [facility] [address] [place] [address] [facility] Start: 09-30-2024 Hemoglobin A1c measurement Diabetes: Hemoglobin A1C [facility] Start: 09-28-2024 Medicare Annual Wellness (AWV) Medicare Annual Wellness (AWV) [facility] Start: 09-25-2024 End: 09-25-2024 Patient encounter procedure 09/25/2024 1:10 PM EST Office Visit [facility] [address] [facility] [address] [place] [address] Ozzie Morris, DPM [address] [facility] [address] [place] [address] [facility] Start: 08-31-2024 Glaucoma screening Diabetes: R etinopathy Screening [facility] Start: 07-17-2024 End: 07-17-2024 Patient encounter procedure [facility] Comment on above: Diabetes mellitus du e to underlying condition with diabetic polyneuropathy, unspecified whether superintendent [employer] insulin use ([facility]) (Primary Dx); Pain due to onychomycosis of toenails of both feet; Venous insufficiency Start: 06-30-2024 End: 06-30-2024 Patient encounter procedure 06/30/2024 1:30 PM EDT Office Visit [facility] [address] [facility] [address] [place] [address] Eduardo Rosen MD [address] [place] [address] Arrived [facility] Comment on above: Arrived Start: 05-29-2024 Hemoglobin A1c measurement Diabetes: Hemoglobin A1C [facility] Start: 05-25-2024 Influenza vaccination Influenza Vacc ine (#1) [facility] Start: 02-27-2024 End: 02-27-2024 Patient encounter procedure 02/27/2024 9:30 AM EDT Office Visit [facility] [address] [place] [address] Eduardo Rosen MD [address] [place] [address] [facility] Start: 01-17-2024 End: 01-17-2024 Patient encounter procedure 01/17/2024 2:00 PM EDT Office Visit [facility] [address] [place] [id number] Ozzie Morris, ARLEEN [address] [facility] [address] [place] [address] [facility] Start: 12-14-2023 Hemoglobin A1c measurement Diabetes: Hemoglobin A1C [facility] Start: 12-05-2023 End: 12-05-2023 Admission to same day surgery center 12/05/2023 11:00 AM EDT - 12/05/2023 12:15 PM EDT Surgery [facility] [address] [place] [id number] Lalito Echeverria DO [address] [place] [address] ARTHROSCOPIC REPAIR MENISCUS KNEE ROOT REPAIR [85872 (CPT )] [facility] Comment on above: ARTHROSCOPIC REPAIR MENISCUS KNEE ROOT REPAIR [30762 (CPT )] Start: 12-05-2023 End: 12-05-2023 Arthroscopy knee w/meniscus rpr medial/lateral ARTHROSCOPIC REPAIR MENISCUS KNEE left knee meniscal tear 12/05/2023 11:00 AM EDT [facility] Start: 12-05-2023 Subsequent hospital visit by physician 12/05/2023 11:00 AM EDT Hospital Encounter [facility] [address] [place] [address] Lalito Echeverria, DO [address] [place] [address] [facility] Start: 11-08-2023 End: 11-08-2023 Patient encounter procedure 11/08/2023 1:10 PM EST Procedure Visit [facility] [address] [place] [address] Ozzie Morris, DPM [address] [facility] [address] [place] [address] [facility] Start: 11-06-2023 End: 11-06-2024 MR Lower extremity joint - left WO contrast MR lower extremity joint left wo IV contrast Imaging Routine Internal derangement of left knee Expected: 11/06/2023 (Approximate), Expires: 11/06/2024 [facility] Work Phone: Comment on above: Expected: 11/06/2023 (Approximate), Expires: 11/06/2024 Start: 11-06-2023 End: 11-06-2023 Patient encounter procedure 11/06/2023 1:00 PM EST Office Visit [facility] [address] [place] [address] Lalito Echeverria, DO [address] [place] [address] [facility] Start: 08-30-2023 Urine screening for protein Diabetes: Urine Protein Screening [facility] Start: 05-25-2023 COVID-19 Vaccine () COVID-19 Vaccine () [facility] Start: 2005 Fall Risk Screening Fall Risk Screen ing [facility] Start: 1959 DTaP,Tdap and Td Vaccines (1 - Tdap) DTaP,Tdap and Td Vaccines (1 - Tdap) [facility] Start: 1958 Adult BMI Follow Up Plan Adult BMI Follow Up Plan [facility] Start: 1952 Depression Screening Depression Scre ening [facility] Start: 1940 Medicare Annual Wellness Visit Medicare Annual Wellness Visit [facility] Immunizations Immunization Date Immunization Notes Care Provider Fa cili 06-30-2024 Influenza, High-dose Seasonal, Quadrivalent, Preservative Free Eduardo Rosen MD Work Phone: [facility] 06-22-2023 ABRYSVO - Respirator y syncytial virus (RSV), vaccine, bivalent, protein subunit RSV prefusion F, diluent reconstituted, 0.5 mL, PF Lalito Echeverria DO Work Phone: [facility] 06-22-2023 Influenza, High-dose Seasonal, Quadrivalent, Preservative Free Lalito Echeverria DO Work Phone: [facility] 06-22-2023 influenza virus vacc ine, unspecified formulation Eduardo Rosen MD Work Phone: [facility] 06-10-2022 Influenza, High-dose Seasonal, Quadrivalent, Preservative Free Lalito Echeverria DO Work Phone: [facility] 06-10-2022 Moderna SARS-CoV-2 50mcg/0.5mL Booster Lalito Echeverria DO Work Phone: [facility] 07-20-2021 Influenza, High-dose Seasonal, Quadrivalent, Preservative Free Lalito Echeverria DO Work Phone: [facility] 06-21-2020 Influenza, High-dose Seasonal, Quadrivalent, Preservative Free Lalito Echeverria DO Work Phone: [facility] 09-27-2019 zoster vaccine recombinant Lalito Echeverria DO Work Phone: [facility] 06-16-2019 Influenza, High-dose Seasonal, Quadrivalent, Preservative Free Lalito Echeverria DO Work Phone: [facility] 06-16-2019 zoster vaccine recombinant Lalito Echeverria DO Work Phone: [facility] 05-12-2019 pneumococcal polysaccharide vaccine, 23 valent Lalito Echeverria DO Work Phone: [facility] 07-02-2018 Influenza, High-dose Seasonal, Quadrivalent, Preservative Free Lalito Echeverria DO Work Phone: [facility] 06-24-2015 pneumococcal conjuga te vaccine, 13 valent Lalito Echeverria DO Work Phone: [facility] 06-24-2015 seasonal influenza, intradermal, preservative free Lalito Echeverria DO Work Phone: [facility] 02-17-2015 zoster vaccine, live Lalito kline DO Work Phone: [facility] 06-13-2014 seasonal influenza, intradermal, preservative free Lalito Echeverria DO Work Phone: [facility] 10-03-2012 pneumococcal polysaccharide vaccine, 23 valent Lalito Echeverria DO Work Phone: [facility] Payers Date Payer Category Payer Medicare [id number] 2019 Medicare (Managed Care) DAVE ANDREWS [id number] 2016 Medicaid [id number]. [id number] 1959 Medicaid [id number] 1959 Self-pay 1959 Unknown [id number] 1940 Unknown [id number] 2.16.840.1.840918.3.579.2. 593 1940 Unknown [id number] 2.16.840.1.007738.3.579.2. 593 1940 Unknown [id number] 2.16.840.1.967987.3.579.2. 593 1940 Unknown [id number] 2.16.840.1.463494.3.579.2. 593 1940 Unknown [id number] 2.840.1.468560.3.579.2. 593 1940 Unknown [id number] 2.16.840.1.511424.3.579.2. 593 1940 Unknown [id number] 2.16.840.1.288009.3.579.2. 593 1940 Unknown [id number] 2.16.840.1.830330.3.579.2. 593 1940 Unknown [id number] 2.840.1.275442.3.579.2. 1286 1940 Unknown [id number] 2.16.840.1.045559.3.579.2. 1286 1940 Unknown [id number] 2.16.840.1.600598.3.579.2. 1286 1940 Unknown [id number] 2.16.840.1.585249.3.579.2. 1286 1940 Unknown [id number] 2.16.840.1.769265.3.579.2. 1286 1940 Unknown [id number] 2.16.840.1.153293.3.579.2. 1286 -1940 Unknown [id number] 2.16.840.1.968499.3.579.2. 1286 194 Unknown [id number] 2.16.840.1.720038.3.579.2. 1259 1940 Unknown [id number] 2.16.840.1.021304.3.579.2. 1259 194 Unknown [id number] 2.16.840.1.803611.3.579.2. 1259 1940 Unknown [id number] 2.16.840.1.370396.3.579.2. 1259 1940 Unknown [id number] 2.16.840.1.389467.3.579.2. 1259 1940 Unknown [id number] 2.16.840.1.959449.3.579.2. 1259 1940 Unknown [id number] 2.16.840.1.105669.3.579.2. 1259 1940 Unknown [id number] 2.16.840.1.216096.3.579.2. 1259 1940 Unknown [id number] 2.16.840.1.712071.3.579.2. 1259 1940 Unknown [id number] 2.16.840.1.196418.3.579.2. 1259 1940 Unknown [id number] 2.16.840.1.337183.3.579.2. 1259 1940 Unknown [id number] 2.16.840.1.098924.3.579.2. 1259 194 Unknown [id number] 2.16.840.1.185779.3.579.2. 1259 1940 Unknown [id number] 2.16.840.1.841212.3.579.2. 1259 1940 Unknown [id number] 2.16.840.1.516697.3.579.2. 1259 1940 Unknown [id number] 2.16.840.1.138093.3.579.2. 727 1940 Unknown [id number] 2.16.840.1.854334.3.579.2. 727 1940 Unknown [id number] 2.16.840.1.661354.3.579.2. 727 Social History Date Type Detail Facility Start: 08-02-2020 End: 05-01-2024 Tobacco smoking status Ex-smoker (finding) [facility] Tobacco smoking status Never [facility] Start: 2023 End: 09-28-2023 Sex Assigned At Female [facility] End: 09-24-1985 History of tobacco use Current smoker [facility] End: 09-24-1985 History of tobacco use Cigarette Smoker [facility] Start: 08-01-2023 End: 05-01-2024 Tobacco use and exposure Smokeless tobacco non-user [facility] Start: 09-28-2023 End: 07-17-2024 Alcohol intake Ex-drinker (finding) [facility] Start: 2023 End: 09-28-2023 History of Social function [facility] Work Phone: Within the last year , have you been afraid of your partner or ex-partner? No [facility] Work Phone: Are you now , , , , never or living with a partner? [facility] How often to you hav e a drink containing alcohol? Never [facility] Do you feel stress - tense, restless, nervous, or anxious, or unable to sleep at night because your mind is troubled all the time - these days [OSQ] Not at all [facility] (I/We) worried wheth er (my/our) food would run out before (I/we) got money to buy more. Never true [facility] Start: 02-23-2023 Alcohol Comment caffeine: 1-2 cups per day coffee, tea [facility] Start: 1940 Sex Assigned At Not on file [facility] Start: 11-28-2023 Alcohol intake Current non-dr dust sampler of alcohol (finding) [facility] Start: 11-28-2023 Tobacco Comment has not smoked in 35 years [facility] Medical Equipment Procedure Code Equipment Code Equipment Origin al Text Equipment Identifier Dates [id number] Start: 08-28-2022 use to test BLOO D SUGAR DAILY [id number] Start: 08-28-2022 1 each by Other route in the morning. [id number] Start: 08-28-2022 Cmnt Bn Hvisc W Gnta Plc Rpl [id number] - Sna - [id number] Start: 09-25-2018 Cmpt Ptlr 29mm Persona Alply - Sna - [id number] Start: 09-25-2018 Bsplt Tib 5d C K n Rt Cmnt Stm - Sna - [id number] Start: 09-25-2018 Functional Status Date Assessment Result Facility 06-25-2023 Functional Status N/A [facility] 06-23-2022 Functional Status N/A [facility] Clinical Notes 02-02-2022 to 07-17-2024 Ozzie Morris DPM - 07/17/2024 1:00 PM GRZEGORZTEduardo Rosen MD - 06/30/2024 1:30 PM EDTPatibrayan Echeverria DO - 11/06/2023 1:00 PM EST Note Date & Type Note Facility 07-17-2024 History of Present illness Narrative Patient: Evelyn Agarwal : 1940 PCP: Eduardo Rosen MD SUBJECTIVE This is a 84 y.o. female that presents today with a CC of elongated, thick nails. Pt states nails have been elongated and thick for many years and cause pain with ambulation in shoegear. Pt has tried previous treatment with minimal relief. Pt presents today for nail care and treatment. Patient has history of PVD and venous stasis with history of type 2 diabetes. Allergies: Allergies Allergen Reactions Hydromorphone Other Reaction(s): Unknown Morphine Other Reaction(s): Unknown Omeprazole Other Reaction(s): ineffective Penicillin G Other Reaction(s): Unknown Past Medical History: Past Medical History: Diagnosis Date Allergies Asthma (CMS/HCC) Cholelithiasis bladder, kidney Diabetes (CMS/HCC) Diverticulitis Gallbladder disease Hearing loss Hypertension (CMS/HCC) Renal cancer (CMS/HCC) Thyroid disease (CMS/HCC) Uterine cancer (CMS/HCC) Medications: Current Outpatient Medications: Abrysvo 120 MCG/0.5ML reconstituted solution, , Disp: , Rfl: acetaminophen (Tylenol Extra Strength) 500 MG tablet, every 6 (six) hours., Disp: , Rfl: amLODIPine (Norvasc) 2.5 MG tablet, TAKE 1 TABLET BY MOUTH DAILY, Disp: 90 tablet, Rfl: 3 aspirin 81 MG EC tablet, Take 81 mg by mouth in the morning., Disp: , Rfl: Calcium Carbonate-Vit D-Min (CALTRATE 600+D PLUS MINERALS PO), Take 1 capsule by mouth in the morning and 1 capsule before bedtime., Disp: , Rfl: cinnamon 500 MG capsule, , Disp: , Rfl: Cod Liver Oil 5000-500 UNIT/5ML oil, Take 1 tablet by mouth in the morning., Disp: , Rfl: Dexilant [address] capsule, TAKE 1 CAPSULE BY MOUTH DAILY, Disp: 90 capsule, Rfl: 3 Drug Burton Unifine Pentips 31G X 8 MM [facility], USE DIRECTED DAILY, Disp: , Rfl: exenatide ER (Bydureon BCise) 2 MG/0.85ML pen, INJECT SUBCUTANEOUSLY ONCE A WEEK for 90 days, Disp: 10.2 mL, Rfl: 3 Farxiga 5 MG, TAKE 1 TABLET BY MOUTH DAILY, Disp: 90 tablet, Rfl: 3 gabapentin (Neurontin) 300 MG capsule, TAKE 1 CAPSULE BY MOUTH AT BEDTIME, Disp: 90 capsule, Rfl: 3 irbesartan (Avapro) 300 MG tablet, TAKE 1 TABLET BY MOUTH DAILY, Disp: 90 tablet, Rfl: 3 Lancets (OneTouch Delica Plus [id number]) [facility], use to test BLOOD SUGAR DAILY, Disp: , Rfl: levothyroxine (Synthroid, Levoxyl) 100 MCG tablet, TAKE 1 TABLET BY MOUTH DAILY, Disp: 90 tablet, Rfl: 3 metFORMIN (Glucophage) 1000 MG tablet, TAKE 1 TABLET BY MOUTH TWICE DAILY, Disp: 180 tablet, Rfl: 3 montelukast (Singulair) 10 MG tablet, TAKE 1 TABLET BY MOUTH DAILY, Disp: 90 tablet, Rfl: 3 omega-3 (fish oil) 1000 MG capsule, Take 2 g by mouth in the morning., Disp: , Rfl: OneTouch Ultra test strip, 1 each by Other route in the morning., Disp: , Rfl: simvastatin (Zocor) 40 MG tablet, TAKE 1 TABLET BY MOUTH AT BEDTIME, Disp: 90 tablet, Rfl: 3 Turmeric (QC Tumeric Complex) 500 MG capsule, Take 1 capsule by mouth in the morning., Disp: , Rfl: Social History: Social History Socioeconomic History Marital status: Spouse name: Not on file Number of children: Not on file Years of education: Not on file Highest education level: Not on file Occupational History Not on file Tobacco Use Smoking status: Former Current packs/day: 0.00 Types: Cigarettes Quit date: 1985 Years since quittin.8 Smokeless tobacco: Never Vaping Use Vaping status: Unknown Substance and Sexual Activity Alcohol use: Not Currently Comment: caffeine: 1-2 cups per day coffee, tea Drug use: Never Sexual activity: Defer Partners: Decline to Answer Other Topics Concern Not on file Social History Narrative Not on file Social Drivers of Health Financial Resource Strain: Low Risk (2023) Overall Financial Resource Strain (CARDIA) Difficulty of Paying Living Expenses: Not hard at all Food Insecurity: No Food Insecurity (2023) Hunger Vital Sign Worried About Running Out of Food in the Last Year: Never true Ran Out of Food in the Last Year: Never true Transportation Needs: No Transportation Needs (2023) PRAPARE - Transportation Lack of Transportation (Medical): No Lack of Transportation (Non-Medical): No Physical Activity: Sufficiently Active (2023) Exercise Vital Sign Days of Exercise per Week: 3 days Minutes of Exercise per Session: 50 min Stress: No Stress Concern Present (2023) [place] [employer] - Occupational Stress Questionnaire Feeling of Stress : Not at all Social Connections: Moderately Isolated (2023) Social Connection and Isolation Panel [NHANES] Frequency of Communication with Friends and Family: More than three times a week Frequency of Social Gatherings with Friends and Family: More than three times a week Attends Confucianist Services: More than 4 times per year Active Member of Clubs or Organizations: No Attends Club or Organization Meetings: Never Marital Status: Intimate Partner Violence: Not At Risk (2023) Humiliation, Afraid, Rape, and Kick questionnaire Fear of Current or Ex-Partner: No Emotionally Abused: No Physically Abused: No Sexually Abused: No Housing Stability: Low Risk (2023) Housing Stability Vital Sign Unable to Pay for Housing in the Last Year: No Number of Places Lived in the Last Year: 1 Unstable Housing in the Last Year: No ROS: General: denies fever, chills, fatigue, malaise OBJECTIVE LE EXAM: DERM: Elongated thick yellow crumbly nails digits 1 through 10. Negative hair growth with thin shiny atrophic skin bilaterally. Plus one pitting edema to bilateral ankles with telangiectasias and small varicosities bilateral VASC: Palpable pedal pulses bilaterally NEURO: 5.07 [place] monofilament test intact to digits and forefoot bilaterally 125Hz tuning fork diminished to 1st MPJ bilaterally ORTHO: Positive pain on palpation to nails 1 through 10 ASSESSMENT Venous stasis bilateral Onychomycosis nails 1-10 Painful toenails 1-10 DM2 with peripheral neuropathy with PVD PLAN Discussed proper foot care with patient today. Debride nails in length and thickness digits 1 through 10 Ozzie Morris DPM documented in this encounter [facility] 06-30-2024 History of Present illness Narrative Images from the original note were not included. Subjective Patient ID: Evelyn Agarwal is a 84 y.o. female who presents for a follow up. Evelyn is in today for a follow up on her hypertension and diabetes. States she checks her BP at home and it has been good. Denies any lightheaded or dizziness. States she laos checks her BGL at home occasionally and it has been around 116 Current Outpatient Medications on File Prior to Visit Medication Sig Dispense Refill Abrysvo 120 MCG/0.5ML reconstituted solution acetaminophen (Tylenol Extra Strength) 500 MG tablet every 6 (six) hours. amLODIPine (Norvasc) 2.5 MG tablet TAKE 1 TABLET BY MOUTH DAILY 90 tablet 3 aspirin 81 MG EC tablet Take 81 mg by mouth in the morning. Calcium Carbonate-Vit D-Min (CALTRATE 600+D PLUS MINERALS PO) Take 1 capsule by mouth in the morning and 1 capsule before bedtime. cinnamon 500 MG capsule Cod Liver Oil 5000-500 UNIT/5ML oil Take 1 tablet by mouth in the morning. Dexilant [address] capsule TAKE 1 CAPSULE BY MOUTH DAILY 90 capsule 3 Drug Burton Unifine Pentips 31G X 8 MM misc USE DIRECTED DAILY exenatide ER (Bydureon BCise) 2 MG/0.85ML pen INJECT SUBCUTANEOUSLY ONCE A WEEK for 90 days 10.2 mL 3 Farxiga 5 MG TAKE 1 TABLET BY MOUTH DAILY 90 tablet 3 gabapentin (Neurontin) 300 MG capsule TAKE 1 CAPSULE BY MOUTH AT BEDTIME 90 capsule 3 irbesartan (Avapro) 300 MG tablet TAKE 1 TABLET BY MOUTH DAILY 90 tablet 3 Lancets (OneTouch Delica Plus [id number]) misc use to test BLOOD SUGAR DAILY levothyroxine (Synthroid, Levoxyl) 100 MCG tablet TAKE 1 TABLET BY MOUTH DAILY 90 tablet 3 metFORMIN (Glucophage) 1000 MG tablet TAKE 1 TABLET BY MOUTH TWICE DAILY 180 tablet 3 montelukast (Singulair) 10 MG tablet TAKE 1 TABLET BY MOUTH DAILY 90 tablet 3 omega-3 (fish oil) 1000 MG capsule Take 2 g by mouth in the morning. BioTrace MedicalTouch Ultra test strip 1 each by Other route in the morning. simvastatin (Zocor) 40 MG tablet TAKE 1 TABLET BY MOUTH AT BEDTIME 90 tablet 3 Turmeric (QC Tumeric Complex) 500 MG capsule Take 1 capsule by mouth in the morning. No current facility-administered medications on file prior to visit. I have reviewed and reconciled the history and medication list with the patient today. Allergies Allergen Reactions Hydromorphone Other Reaction(s): Unknown Morphine Other Reaction(s): Unknown Omeprazole Other Reaction(s): ineffective Penicillin G Other Reaction(s): Unknown Social History Tobacco Use Smoking status: Former Current packs/day: 0.00 Types: Cigarettes Quit date: 1985 Years since quittin.7 Smokeless tobacco: Never Vaping Use Vaping status: Unknown Substance Use Topics Alcohol use: Not Currently Comment: caffeine: 1-2 cups per day coffee, tea Drug use: Never Family History Problem Relation Name Age of Onset Brain cancer Mother Stroke Father Heart attack Son Past Medical History: Diagnosis Date Allergies Asthma (CMS/HCC) Cholelithiasis bladder, kidney Diabetes (CMS/HCC) Diverticulitis Gallbladder disease Hearing loss Hypertension (CMS/HCC) Renal cancer (CMS/HCC) Thyroid disease (CMS/HCC) Uterine cancer (CMS/HCC) Past Surgical History: Procedure Laterality Date APPENDECTOMY BOWEL RESECTION Left 2008 Diverticulitis CARPAL TUNNEL RELEASE Bilateral CATARACT EXTRACTION CHOLECYSTECTOMY COLONOSCOPY 03/2011 Dr. Powell CYSTOSCOPY 02/25/2018 DILATION AND CURETTAGE HYSTERECTOMY KNEE ARTHROSCOPY W/ MENISCAL REPAIR Left 12/05/2023 Dr. Echeverria NECK SURGERY ME KNEE SCOPE,MED/LAT MENISECTOMY Right 12/27/2016 lat meniscectomy ROTATOR CUFF REPAIR Right 11/16/2014 TOTAL KNEE ARTHROPLASTY Right 09/25/2018 Dr. Echeverria Visit Vitals BP 135/80 Pulse 79 Resp 17 Wt 179 lb 3.2 oz SpO2 95% BMI 32.78 kg/m Smoking Status Former BSA 1.89 m Review of Systems Objective Physical Exam Constitutional: General: She is not in acute distress. Appearance: Normal appearance. She is well-developed. HENT: Head: Normocephalic and atraumatic. Eyes: General: No scleral icterus. Conjunctiva/sclera: Conjunctivae normal. Cardiovascular: Rate and Rhythm: Normal rate and regular rhythm. Heart sounds: Normal heart sounds. No murmur heard. Pulmonary: Effort: Pulmonary effort is normal. No respiratory distress. Breath sounds: Normal breath sounds. No wheezing, rhonchi or rales. Skin: General: Skin is warm and dry. Neurological: General: No focal deficit present. Mental Status: She is alert and oriented to person, place, and time. Psychiatric: Mood and Affect: Mood normal. Behavior: Behavior normal. Office Visit on 06/30/2024 Component Date Value Ref Range Status Hemoglobin A1C 06/30/2024 6.1 Final Office Visit on 02/27/2024 Component Date Value Ref Range Status Hemoglobin A1C 02/27/2024 6.4 Final Color, UA 02/27/2024 Yellow Final Clarity, UA 02/27/2024 Cloudy Final Glucose, UA 02/27/2024 2+ Negative - 2000(110) ++++ mg/dL Final Bilirubin, UA 02/27/2024 Negative Negative - 4(70) +++ mg/dL Final Ketones, UA 02/27/2024 Negative Negative - 160(16) ++++ mg/dL Final Spec Grav, UA 02/27/2024 1.005 1 - 1.03 Final Blood, UA 02/27/2024 Positive Negative - 50 Colin/mcL Final pH, UA 02/27/2024 5.0 5 - 9 Final Protein, UA 02/27/2024 Trace Negative - 2000(20) ++++ mg/dL Final Urobilinogen, UA 02/27/2024 0.2 0.2 - 12 mg/dL Final Leukocytes, UA 02/27/2024 Moderate Negative - 500+++ Ligia/mcL Final Nitrite, UA 02/27/2024 Negative Negative - Positive Final Assessment/Plan Diagnoses and all orders for this visit: Benign essential hypertension (CMS/HCC) - This is a chronic medical condition that is stable since last assessment. No changes in treatment are suggested at this time. Type 2 diabetes mellitus with hypoglycemia without coma, without long-term current use of insulin (CMS/HCC) - POCT glycosylated hemoglobin (Hb A1C) docked device - FSBS log shows good control, most recent A1C is at or near goal. Continue current treatment plan as previously outlined without changes. A1C 6.1% today. Flu vaccine need - Influenza, high-dose seasonal, quadrivalent, PF ([id number]) (Fluzone High Dose [facility] 0.7mL dose) Mixed hyperlipidemia (CMS/HCC) - Recent lab work for this condition was reviewed and discussed with the patient. Labs are at or near goal, no changes to medication are planned. Primary osteoarthritis of both knees Follow up in about 4 months (around 10/31/2024) for Routine F/U, DM- A1C. documented in this encounter [facility] 11-28-2023 Instructions Yumiko Barton RN - 11/28/2023 9:45 AM EST Preoperative Education Checklist- General Surgery date: 12/05/23 Surgery time: 2p Arrival time: 12p 1. Bring a photo ID and your insurance card with you the day of surgery. You will check in at the main lobby of the [facility]- registration desk is straight ahead as soon as you walk in. Tell them you are here for surgery. 2. If you have a Living Will/Durable Power of Blood Donor Recruiter Supervisor for Health Care that is not on file here, please bring a copy the day of surgery. 3. Please shower/bathe the night before surgery with the provided soap or wipes. Do not shower the morning of surgery- you will do use wipes when you arrive here at the hospital before getting into your surgical gown. Do not shave the area of your procedure for 2 days prior to your surgery. 4. NO powder, lotion, perfume/cologne, aftershave, make-up, deodorant, or hair products after you have bathed. 5. NO nail vietnamese/acrylic on at least one finger. If you are having a hand, wrist or foot surgery then all nail vietnamese and artificial/acrylic nails must be removed from that hand or foot. 6. Avoid ALL Aspirin and non-steroidal anti-inflammatory drugs and certain vitamins (Ibuprofen, Advil, Aleve, Excedrin, Meloxicam, Celebrex, fish/krill oil, etc.) for 7 days prior to surgery as instructed by your surgeon and/or your prescribing doctor. Tylenol IS ALLOWED. If you are on Ticlid, Xarelto, Eliquis, Pradaxa, Plavix or Coumadin, please check with your prescribing doctor for instructions for when to stop them. 7. If you use an inhaler, continue to use it routinely. 8. Nothing to eat or drink (not even water, gum, mints, or hard candy!) AFTER midnight prior to your surgery. 9. Take only medications that you are instructed to on the morning of surgery with a TINY SIP OF WATER. 10. Choose a responsible adult that will be able to drive you home when you are discharged from your hospital stay for your surgery and can stay with you in your home for 24 hours after your procedure. You must NOT drive any vehicle or operate any machinery for 24 hours after surgery. 11. When you dress for your appointment, please wear loose fitting clothing that is appropriate to accommodate your surgical area procedure. BRING WITH YOU ANY DEVICES YOU MAY NEED: GONZALO hose, ice machine, sling/swath, brace or special shoe, oversized zip-up or button up shirt, CPAP machine if staying overnight. 12. Do NOT wear jewelry, watches, or any piercings or metal for surgery- leave these valuables and money at home. 13. Do NOT wear contact lenses for surgery- glasses are okay if needed. 14. The anesthesiologist will talk with you the day of surgery and will ask you to sign a Consent Form. 15. Refrain from smoking or any type of tobacco use for at least 8 hours and marijuana for 24 hours prior to arrival for your surgery. 16. If a GREEN BLOOD band is given to you, please bring it with you for the day of surgery. 17. Notify your surgeon if you develop any illness before your surgery. 18. If you are staying overnight, please DO NOT BRING your home medications with you. 19. If you have any questions prior to surgery, please call the Preadmission Testing office at [phone], Mon.-Fri. 7 a.m.-3 p.m. Leave a voicemail if needed. Pre-Surgery Instructions: Medication Instructions amLODIPine (NORVASC) 2.5 mg tablet Take morning of procedure aspirin 81 mg Check with prescribing doctor for instructions BYDUREON BCISE 2 mg/0.85 mL auto-injector Stop taking 1 week prior to procedure cinnamon bark (CINNAMON ORAL) Stop taking 0 days prior to procedure cod liver oil oil Stop taking 1 week prior to procedure dexlansoprazole (DEXILANT ORAL) Take morning of procedure gabapentin (NEURONTIN) 300 mg capsule Stop taking 0 days prior to procedure irbesartan (AVAPRO) 300 mg tablet Take morning of procedure levothyroxine (SYNTHROID, LEVOTHROID) 100 MCG tablet Take morning of procedure metFORMIN (GLUCOPHAGE) 1000 mg tablet Stop taking 0 days prior to procedure montelukast (SINGULAIR) 10 mg tablet Take morning of procedure omega-3 fatty acids-fish oil (FISH OIL) 300-1,000 mg capsule Stop taking 1 week prior to procedure simvastatin (ZOCOR) 40 mg tablet Stop taking 0 days prior to procedure [id number] [phone] mg tablet Stop taking 0 days prior to procedure FARXIGA 5 mg tablet Stop taking 0 days prior to procedure How to Avoid an Infection after Your Surgery Your doctor will give you specific instructions, but remember: -ALWAYS wash hands before caring for your incision. -No picking, scratching, or rubbing your incision. -No creams, lotion, powder, rubbing alcohol or hydrogen peroxide on the incision (can harm the tissue and slow healing). -Your doctor will give you specific instructions for what type of dressing you will need and how often it will need changed for infection purposes. -No tight clothing on incision. -Do not allow anyone to touch your incision unless they are cleaning, checking, or redressing it (be sure they wash their hands first). -No contact of your incision with pets; avoid sleeping with pets. -Take full course of antibiotic if prescribed for you after surgery- do not stop unless directed to by your physician. You may also be given an antibiotic prior to your surgery to help prevent surgical site infections. -Eat a healthy and varied diet including proteins, fruits, and vegetables to help promote wound healing and keep blood sugars under control if you are diabetic. -Smoking slows the healing process by decreasing the amount of oxygen in your blood that is needed for tissue healing. Try to avoid or stop smoking if possible. LOOK at your incision each morning and each night to check the progress of healing. Some soreness, numbness, itching and/or mild bruising around the incision is normal. Call your doctor if you notice any of the following: -Increased redness or hardening around the incision area. -Increased pain at the incision site. -Incision feels hot to the touch. -Swelling or pulling apart of the incision edges. -Yellow or green drainage or foul odor coming from the incision. -Bleeding from the incision (apply pressure as needed). -Fever higher than 101 degrees Fahrenheit for more than 4 hours. SHOWERING: Your doctor will give you specific instructions, but remember: -Be careful getting into and out of the shower. -Showers should be quick (5 minutes or less). -Use a clean washcloth to gently wash your incision with soap and water and pat the area dry with a clean towel. -No re-using wash cloths or towels; get a fresh one to clean your incision. -Do not soak in the bathtub, go swimming or use a hot tub (Jacuzzi), or perform activities where your incision is submerged in water or exposed to any fluids or substances until instructed by your doctor. -If your have the sticky strips (steri-strips) over the incision, it is OK to shower with them. Do not remove them. Let them fall off on their own. If you have a question, call your doctor s office. Go to the follow-up appointment with your doctor. documented in this encounter [facility] 11-06-2023 History of Present illness Narrative Images from the original note were not included. HISTORY OF PRESENT ILLNESS: Evelyn Agarwal is an 83 y.o. @ female. Chief complaint LT knee pain LT knee: pt has been considering options She notes increased pain x 2 days, denies injury. Pain diffuse in knee x 3 1/2 months months (end of Jun) NKI. Describes as aching. She feels like the knee swells and is warm. Pain at worst 10/[address]. Lt knee wakes her up at night Taking TYL ES BID. Admits giving out sensation often, especially with stairs. Wears brace on LT knee at night or if she goes on a walk. The brace she uses is the one she had from her RT knee surgery, sleeve with hole in center. + limping. TX: depo medrol injection 08/01/23, brace, taking TYL ES MEDICATION: Current Outpatient Medications on File Prior to Visit Medication Sig Dispense Refill acetaminophen (Tylenol Extra Strength) 500 MG tablet every 6 (six) hours. amLODIPine (Norvasc) 2.5 MG tablet TAKE 1 TABLET BY MOUTH DAILY 90 tablet 3 aspirin 81 MG EC tablet Take 81 mg by mouth in the morning. Calcium Carbonate-Vit D-Min (CALTRATE 600+D PLUS MINERALS PO) Take 1 capsule by mouth in the morning and 1 capsule before bedtime. cinnamon 500 MG capsule Cod Liver Oil 5000-500 UNIT/5ML oil Take 1 tablet by mouth in the morning. Dexilant [address] capsule TAKE 1 CAPSULE BY MOUTH DAILY 90 capsule 3 Drug Burton Unifindodie Pentips 31G X 8 MM misc USE DIRECTED DAILY exenatide ER (Bydulea Robles) 2 MG/0.85ML pen INJECT SUBCUTANEOUSLY ONCE A WEEK for 90 days 10.2 mL 3 Farxiga 5 MG TAKE 1 TABLET BY MOUTH DAILY 90 tablet 3 gabapentin (Neurontin) 300 MG capsule TAKE 1 CAPSULE BY MOUTH AT BEDTIME 90 capsule 3 irbesartan (Avapro) 300 MG tablet Lancets (Iagnosis Delica Plus Uvozet09L) misc use to test BLOOD SUGAR DAILY levothyroxine (Synthroid, Levoxyl) 100 MCG tablet metFORMIN (Glucophage) 1000 MG tablet montelukast (Singulair) 10 MG tablet TAKE 1 TABLET BY MOUTH DAILY 90 tablet 3 omega-3 (fish oil) 1000 MG capsule Take 2 g by mouth in the morning. Iagnosis Ultra test strip 1 each by Other route in the morning. simvastatin (Zocor) 40 MG tablet Turmeric (QC Tumeric Complex) 500 MG capsule Take 1 capsule by mouth in the morning. [DISCONTINUED] amLODIPine (Norvasc) 2.5 MG tablet [DISCONTINUED] Dexilant [address] capsule [DISCONTINUED] gabapentin (Neurontin) 300 MG capsule TAKE 1 CAPSULE BY MOUTH AT BEDTIME 90 capsule 0 No current facility-administered medications on file prior to visit. MEDICAL HISTORY: Past Medical History: Diagnosis Date Allergies Asthma (CMS/HCC) Cholelithiasis bladder, kidney Diabetes (CMS/HCC) Diverticulitis Gallbladder disease Hearing loss Hypertension (CMS/HCC) Renal cancer (CMS/HCC) Thyroid disease (CMS/HCC) Uterine cancer (CMS/HCC) ALLERGIES: Allergies Allergen Reactions Hydromorphone Other Reaction(s): Unknown Morphine Other Reaction(s): Unknown Omeprazole Other Reaction(s): ineffective Penicillin G Other Reaction(s): Unknown VITALS: Visit Vitals Smoking Status Former PHYSICAL EXAM: Ortho Exam LEFT KNEE No warmth ROM 0-120 Positive Medial impingement Mild effusion No instability ASSESSMENT: ICD-10-CM 1. Left knee pain, unspecified chronicity M25.562 2. Arthritis of left knee M17.12 3. Internal derangement of left knee M23.92 MR lower extremity joint left wo IV contrast PLAN: I explained the diagnosis and reviewed treatment options. I answered all of the patient's questions. I recommend a LT knee MRI, follow up after MRI. Dr. Echeverria obtained history and examined the patient, I am acting as scribe for Dr. Echeverria/veronica Echeverria D.O. documented in this encounter [facility] 06-25-2023 Hospital Discharge instructions Patient Education 06/25/2023 10:39:50 Cystoscopy Cystoscopy Cystoscopy is a procedure that is used to help diagnose and sometimes treat conditions that affect the lower urinary tract. The lower urinary tract includes the bladder and the urethra. The urethra is the tube that drains urine from the bladder. Cystoscopy is done using a thin, tube-shaped instrument with a light and camera at the end (cystoscope). The cystoscope may be hard or flexible, depending on the goal of the procedure. The cystoscope is inserted through the urethra, into the bladder. Cystoscopy may be recommended if you have: Urinary tract infections that keep coming back. Blood in the urine (hematuria). An inability to control when you urinate (urinary incontinence) or an overactive bladder. Unusual cells found in a urine sample. A blockage in the urethra, such as a urinary stone. Painful urination. An abnormality in the bladder found during an intravenous pyelogram (IVP) or CT scan. Cystoscopy may also be done to remove a sample of tissue to be examined under a microscope (biopsy). Tell a health care provider about: Any allergies you have. All medicines you are taking, including vitamins, herbs, eye drops, creams, and guhy-iyi-zloypup medicines. Any problems you or family members have had with anesthetic medicines. Any blood disorders you have. Any surgeries you have had. Any medical conditions you have. Whether you are or may be . What are the risks? Generally, this is a safe procedure. However, problems may occur, including: Infection. Bleeding. Allergic reactions to medicines. Damage to other structures or organs. What happens before the procedure? Medicines Ask your health care provider about: Changing or stopping your regular medicines. This is especially important if you are taking diabetes medicines or blood thinners. Taking medicines such as aspirin and ibuprofen. These medicines can thin your blood. Do not take these medicines unless your health care provider tells you to take them. Taking uksy-ygn-mvkmkrz medicines, vitamins, herbs, and supplements. Tests You may have an exam or testing, such as: X-rays of the bladder, urethra, or kidneys. CT scan of the abdomen or pelvis. Urine tests to check for signs of infection. General instructions Follow instructions from your health care provider about eating or drinking restrictions. Ask your health care provider what steps will be taken to help prevent infection. These steps may include: ?Washing skin with a germ-killing soap. ?Taking antibiotic medicine. Plan to have a responsible adult take you home from the hospital or clinic. What happens during the procedure? You will be given one or more of the following: ?A medicine to help you relax (sedative). ?A medicine to numb the area (local anesthetic). The area around the opening of your urethra will be cleaned. The cystoscope will be passed through your urethra into your bladder. Germ-free (sterile) fluid will flow through the cystoscope to fill your bladder. The fluid will stretch your bladder so that your health care provider can clearly examine your bladder ponce. Your doctor will look at the urethra and bladder. Your doctor may take a biopsy or remove stones. The cystoscope will be removed, and your bladder will be emptied. The procedure may vary among health care providers and hospitals. What can I expect after the procedure? After the procedure, it is common to have: Some soreness or pain in your abdomen and urethra. Urinary symptoms. These include: ?Mild pain or burning when you urinate. Pain should stop within a few minutes after you urinate. This may last for up to 1 week. ?A small amount of blood in your urine for several days. ?Feeling like you need to urinate but producing only a small amount of urine. Follow these instructions at home: Medicines Take fndc-syd-dvoyicw and prescription medicines only as told by your health care provider. If you were prescribed an antibiotic medicine, take it as told by your health care provider. Do not stop taking the antibiotic even if you start to feel better. General instructions Return to your normal activities as told by your health care provider. Ask your health care provider what activities are safe for you. If you were given a sedative during the procedure, it can affect you for several hours. Do not drive or operate machinery until your health care provider says that it is safe. Watch for any blood in your urine. If the amount of blood in your urine increases, call your health care provider. Follow instructions from your health care provider about eating or drinking restrictions. If a tissue sample was removed for testing (biopsy) during your procedure, it is up to you to get your test results. Ask your health care provider, or the department that is doing the test, when your results will be ready. Drink enough fluid to keep your urine pale yellow. Keep all follow-up visits. This is important. Contact a health care provider if: You have pain that gets worse or does not get better with medicine, especially pain when you urinate. You have trouble urinating. You have more blood in your urine. Get help right away if: You have blood clots in your urine. You have abdominal pain. You have a fever or chills. You are unable to urinate. Summary Cystoscopy is a procedure that is used to help diagnose and sometimes treat conditions that affect the lower urinary tract. Cystoscopy is done using a thin, tube-shaped instrument with a light and camera at the end. After the procedure, it is common to have some soreness or pain in your abdomen and urethra. Watch for any blood in your urine. If the amount of blood in your urine increases, call your health care provider. If you were prescribed an antibiotic medicine, take it as told by your health care provider. Do not stop taking the antibiotic even if you start to feel better. This information is not intended to replace advice given to you by your health care provider. Make sure you discuss any questions you have with your health care provider. Document Revised: 05/24/2022 Document Reviewed: 04/22/2021 [employer] Patient Education 2022 [employer]. 06/25/2023 10:33:36 Renal Mass Renal Mass A renal mass is an abnormal growth in the kidney. It may be found while performing an MRI, CT scan, or ultrasound to evaluate other problems of the abdomen. A renal mass that is cancerous (malignant) may grow or spread quickly. Others are not cancerous (benign). Renal masses include: Tumors. These may be malignant or benign. ?The most common type of kidney cancer in adults is renal cell carcinoma. In children, the most common type of kidney cancer is Wilms tumor. ?The most common benign tumors of the kidney include renal adenomas, oncocytomas, and angiomyolipoma (AML). Cysts. These are fluid-filled sacs that form on or in the kidney. What are the causes? Certain types of cancers, infections, or injuries can cause a renal mass. It is not always known what causes a cyst to develop in or on the kidney. What are the signs or symptoms? Often, a renal mass does not cause any signs or symptoms; most kidney cysts do not cause symptoms. How is this diagnosed? Your health care provider may recommend tests to diagnose the cause of your renal mass. These tests may be done if a renal mass is found: Physical exam. Blood tests. Urine tests. Imaging tests, such as ultrasound, CT scan, or MRI. Biopsy. This is a small sample that is removed from the renal mass and tested in a lab. The exact tests and how often they are done will depend on: The size and appearance of the renal mass. Risk factors or medical conditions that increase your risk for problems. Any symptoms associated with the renal mass, or concerns that you have about it. Tests and physical exams may be done once, or they may be done regularly for a period of time. Tests and exams that are done regularly will help monitor whether the mass is growing and beginning to cause problems. How is this treated? Treatment is not always needed for this condition. Your health care provider may recommend careful monitoring and regular tests and exams. Treatment will depend on the cause of the mass. Treatment for a cancerous renal mass may include surgical removal, chemotherapy, radiation, or immunotherapy. Most kidney cysts do not need to be treated. Follow these instructions at home: What you need to do at home will depend on the cause of the mass. Follow the instructions that your health care provider gives to you. In general: Take yfca-kog-otbnyvl and prescription medicines only as told by your health care provider. If you were prescribed an antibiotic medicine, take it as told by your health care provider. Do not stop taking the antibiotic even if you start to feel better. Follow any restrictions that are given to you by your health care provider. Keep all follow-up visits. This is important. ?You may need to see your health care provider once or twice a year to have CT scans and ultrasounds. These tests will show if your renal mass has changed or grown. Contact a health care provider if you: Have pain in your side or back (flank pain). Have a fever. Feel full soon after eating. Have pain or swelling in the abdomen. Lose weight. Get help right away if: Your pain gets worse. There is blood in your urine. You cannot urinate. You have chest pain. You have trouble breathing. These symptoms may represent a serious problem that is an emergency. Do not wait to see if the symptoms will go away. Get medical help right away. Call your local emergency services (911 in the [place] Summary A renal mass is an abnormal growth in the kidney. It may be cancerous (malignant) and grow or spread quickly, or it may not be cancerous (benign). Renal masses often do not have any signs or symptoms. Renal masses may be found while performing an MRI, CT scan, or ultrasound for other problems of the abdomen. Your health care provider may recommend that you have tests to diagnose the cause of your renal mass. These may include a physical exam, blood tests, urine tests, imaging, or a biopsy. Treatment is not always needed for this condition. Careful monitoring may be recommended. This information is not intended to replace advice given to you by your health care provider. Make sure you discuss any questions you have with your health care provider. Document Revised: 03/07/2021 Document Reviewed: 03/07/2021 [employer] Patient Education 2022 [employer]. Follow Up Care 06/23/2022 10:56:50 With:BRIGITTE VILLELA, Angel Charles, URL Address: [facility] [address] [place] [address]- [phone] When: Unknown Comments:MRI of kidneys in 1yrsched cysto w/ poss UD now [facility] 06-07-2023 Evaluation note Encounter Date Diagnosis Assessment Notes May, PAD (periphera l artery disease) (ICD-10 - I73.9) This patient has mild PAD based on this study. She has no symptoms. I do not recommend any further work-up or intervention at this time I encouraged exercise daily. I will see her as needed in the future. Not going to charge her for this visit. [facility] Other 09-30-2022 Hospital Discharge instructions Patient Education 06/23/2022 10:51:55 COVID-19 Frequently Asked Questions COVID-19 Frequently Asked Questions COVID-19 (coronavirus disease) is an infection that is caused by a large family of viruses. Some viruses cause illness in people and others cause illness in animals like camels, cats, and bats. In some cases, the viruses that cause illness in animals can spread to humans. Where did the coronavirus come from? In August 2019, [place] told the World Health Organization (WHO) of several cases of lung disease (human respiratory illness). These cases were linked to an open seafood and livestock market in the city of [facility]. The link to the seafood and livestock market suggests that the virus may have spread from animals to humans. However, since that first outbreak in August, the virus has also been shownto spread from person to person. What is the name of the disease and the virus? Disease name Early on, this disease was called novel coronavirus. This is because scientists determined that thedisease was caused by a new (novel) respiratory virus. The World Health Organization (WHO) has now named the disease COVID-19, or coronavirus disease. Virus name The virus that causes the disease is called severe acute respiratory syndrome coronavirus 2 (SARS-CoV-2). More information on disease and virus naming World Health Organization (WHO): www.who.int/emergencies/diseases/ebsds-eyeqnrwtmex-8791/technical-g uidance/cjrhmt-tzb-adcllymfrck-disease-(covid-2019)-xwy-qtg-avwmh-wftt-tkmiyk-sz Who is at risk for complications from coronavirus disease? Some people may be at higher risk for complications from coronavirus disease. This includes older adults and people who have chronic diseases, such as heart disease, diabetes, and lung disease. If you are at higher risk for complications, take these extra precautions: Avoid close contact with people who are sick or have a fever or cough. Stay at least 3 6 ft (1 2 m)away from them, if possible. Wash your hands often with soap and water for at least 20 seconds. Avoid touching your face, mouth, nose, or eyes. Keep supplies on hand at home, such as food, medicine, and cleaning supplies. Stay home as much as possible. Avoid social gatherings and travel. How does coronavirus disease spread? The virus that causes coronavirus disease spreads easily from person to person (is contagious). There are also cases of community-spread disease. This means the disease has spread to: People who have no known contact with other infected people. People who have not traveled to areas where there are known cases. It appears to spread from one person to another through droplets from coughing or sneezing. Can I get the virus from touching surfaces or objects? There is still a lot that we do not know about the virus that causes coronavirus disease. Scientists are basing a lot of information on what they know about similar viruses, such as: Viruses cannot generally survive on surfaces for long. They need a human body (host) to survive. It is more likely that the virus is spread by close contact with people who are sick (direct contact), such as through: ?Shaking hands or hugging. ?Breathing in respiratory droplets that travel through the air. This can happen when an infected person coughs or sneezes on or near other people. It is less likely that the virus is spread when a person touches a surface or object that has the virus on it (indirect contact). The virus may be able to enter the body if the person touches a surface or object and then touches his or her face, eyes, nose, or mouth. Can a person spread the virus without having symptoms of the disease? It may be possible for the virus to spread before a person has symptoms of the disease, but this ismost likely not the main way the virus is spreading. It is more likely for the virus to spread by being in close contact with people who are sick and breathing in the respiratory droplets of a sick person's cough or sneeze. What are the symptoms of coronavirus disease? Symptoms vary from person to person and can range from mild to severe. Symptoms may include: Fever. Cough. Tiredness, weakness, or fatigue. Fast breathing or feeling short of breath. These symptoms can appear anywhere from 2 to 14 days after you have been exposed to the virus. If you develop symptoms, call your health care provider. People with severe symptoms may need hospital care. If I am exposed to the virus, how long does it take before symptoms start? Symptoms of coronavirus disease may appear anywhere from 2 to 14 days after a person has been exposed to the virus. If you develop symptoms, call your health care provider. Should I be tested for this virus? Your health care provider will decide whether to test you based on your symptoms, history of exposure, and your risk factors. How does a health care provider test for this virus? Health care providers will collect samples to send for testing. Samples may include: Taking a swab of fluid from the nose. Taking fluid from the lungs by having you cough up mucus (sputum) into a sterile cup. Taking a blood sample. Taking a stool or urine sample. Is there a treatment or vaccine for this virus? Currently, there is no vaccine to prevent coronavirus disease. Also, there are no medicines like antibiotics or antivirals to treat the virus. A person who becomes sick is given supportive care, which means rest and fluids. A person may also relieve his or her symptoms by using wtbo-dvf-takutpt medicines that treat sneezing, coughing, and runny nose. These are the same medicines that a person takes for the common cold. If you develop symptoms, call your health care provider. People with severe symptoms may need hospital care. What can I do to protect myself and my family from this virus? You can protect yourself and your family by taking the same actions that you would take to prevent the spread of other viruses. Take the following actions: Wash your hands often with soap and water for at least 20 seconds. If soap and water are not available, use alcohol-based hand joint special operations. Avoid touching your face, mouth, nose, or eyes. Cough or sneeze into a tissue, sleeve, or elbow. Do not cough or sneeze into your hand or the air. ?If you cough or sneeze into a tissue, throw it away immediately and wash your hands. Disinfect objects and surfaces that you frequently touch every day. Avoid close contact with people who are sick or have a fever or cough. Stay at least 3 6 ft (1 2 m)away from them, if possible. Stay home if you are sick, except to get medical care. Call your health care provider before you get medical care. Make sure your vaccines are up to date. Ask your health care provider what vaccines you need. What should I do if I need to travel? Follow travel recommendations from your local health authority, the CDC, and WHO. Travel information and advice Centers for Disease Control and Prevention (CDC): www.cdc.gov/coronavirus/2019-ncov/travelers/index.html World Health Organization (WHO): www.who.int/emergencies/diseases/omdkj-rnhldevcvti-3824/travel-advice Know the risks and take action to protect your health You are at higher risk of getting coronavirus disease if you are traveling to areas with an outbreak or if you are exposed to travelers from areas with an outbreak. Wash your hands often and practice good hygiene to lower the risk of catching or spreading the virus. What should I do if I am sick? General instructions to stop the spread of infection Wash your hands often with soap and water for at least 20 seconds. If soap and water are not available, use alcohol-based hand joint special operations. Cough or sneeze into a tissue, sleeve, or elbow. Do not cough or sneeze into your hand or the air. If you cough or sneeze into a tissue, throw it away immediately and wash your hands. Stay home unless you must get medical care. Call your health care provider or local health authority before you get medical care. Avoid public areas. Do not take public transportation, if possible. If you can, wear a mask if you must go out of the house or if you are in close contact with someonewho is not sick. Keep your home clean Disinfect objects and surfaces that are frequently touched every day. This may include: ?Counters and tables. ?Doorknobs and light switches. ?Sinks and faucets. ?Electronics such as phones, remote controls, keyboards, computers, and tablets. Wash dishes in hot, soapy water or use a quality assurance group leader. Air-dry your dishes. Wash laundry in hot water. Prevent infecting other household members Let healthy household members care for children and pets, if possible. If you have to care for children or pets, wash your hands often and wear a mask. Sleep in a different bedroom or bed, if possible. Do not share personal items, such as razors, toothbrushes, deodorant, otoole, brushes, towels, and washcloths. Where to find more information Centers for Disease Control and Prevention (CDC) Information and news updates: www.cdc.gov/coronavirus/2019-ncov World Health Organization (WHO) Information and news updates: www.who.int/emergencies/diseases/jhihj-jsiwysupvaw-0896 Coronavirus health topic: www.who.int/health-topics/coronavirus Questions and answers on COVID-19: www.who.int/news-room/q-a-detail/d-c-jkznvjykatefe Global tracker: [employer] [place] [employer] (AAP) Information for families: www.healthychildren.org/Swiss/health-issues/conditions/chest-lungs/Pages /7254-Fraee-Xepjvxujuyk.aspx The coronavirus situation is changing rapidly. Check your local health authority website or the [facility] WHO websites for updates and news. When should I contact a health care provider? Contact your health care provider if you have symptoms of an infection, such as fever or cough, andyou: ?Have been near anyone who is known to have coronavirus disease. ?Have come into contact with a person who is suspected to have coronavirus disease. ?Have traveled outside of the country. When should I get emergency medical care? Get help right away by calling your local emergency services (911 in the [place] if you have: ?Trouble breathing. ?Pain or pressure in your chest. ?Confusion. ?Blue-tinged lips and fingernails. ?Difficulty waking from sleep. ?Symptoms that get worse. Let the emergency medical personnel know if you think you have coronavirus disease. Summary A new respiratory virus is spreading from person to person and causing COVID-19 (coronavirus disease). The virus that causes COVID-19 appears to spread easily. It spreads from one person to another through droplets from coughing or sneezing. Older adults and those with chronic diseases are at higher risk of disease. If you are at higher risk for complications, take extra precautions. There is currently no vaccine to prevent coronavirus disease. There are no medicines, such as antibiotics or antivirals, to treat the virus. You can protect yourself and your family by washing your hands often, avoiding touching your face, and covering your coughs and sneezes. This information is not intended to replace advice given to you by your health care provider. Make sure you discuss any questions you have with your health care provider. Document Released: 01/06/2020 Document Revised: 01/06/2020 Document Reviewed: 01/06/2020 [employer] Patient Education 2019 [employer] Follow Up Care 05/12/2022 15:06:45 With:BRIGITTE VILLELA, Angel Charles, URL Address: [address] [place] [id number]- When: Unknown [facility] Andrea 05-12-2022 NoteCONSULTATION CONSULTATION DATE: 02/02/2022 This is a pleasant and active 81-year-old female who returns to the clinic for a one-month follow-up. She was last seen as a new patient on and at that time she was ordered #1 bilateral MBB which was denied by her insurance due to her pain not being of 12 weeks in length. She has reached that point now and her back pain is increasing. She is 7 out of 10 today and describes it as weak and painful. At times she has difficulty transitioning positions from sitting to standing. In addition, evening hours, lifting, twisting and dressing aggravate her pain. Medications include gabapentin 300 mg four times a day; Flexeril, Tylenol Arthritis and multivitamin regimen. She is also complaining of neck pain today which is 5 out of 10. She describes it as feeling weak and wobbly. She describes it as feeling like her head is too heavy for her neck. She denies dropping objects with her hands or having radicular pain. REVIEW OF SYSTEMS, PAST MEDICAL HISTORY, ALLERGIES AND IMAGES: Have been reviewed and noted in the chart. PHYSICAL EXAM: VITAL SIGNS: Blood pressure 133/77, heart rate is 87, temperature is 97.7. Height is 5'1 , weighs 82 kg. GENERAL APPEARANCE: Cognitively intact, alert, appropriate and in no acute distress. FOCUSED EXAM: NECK: Range of motion slightly guarded in left latera rotation. Fullness is palpated to the posterior elements of the facets. BACK: Range of motion is guarded in lateral rotation and flexion/extension. Reproduction of spinoaxial pain to direct compression along the posterior elements of the lumbar facets of L2, L3 and L4, L5 bilaterally. Pain radiates to bilateral buttocks. Ric's point is nontender as is negative Parrish's and compression test. MUSCULOSKELETAL: Motor is intact. Upper and lower extremities 4 out of 5 bilaterally. NEUROLOGICAL: Radicular sensory is intact. Negative polyneuropathy. DIAGNOSIS: Lumbar spondylosis, lumbar degenerative disk, cervicalgia. PLAN: We will again re-submit to insurance to be able to perform a #1 bilateral MBB to L2, L3 and L4, L5. A cervical flexion and extension x-ray is ordered as well. The patient will return to the clinic post procedure, pending authorization as well as reviewing her cervical x-ray. In the meantime the patient is to continue using her vitamins and I recommended a Boost supplement daily. Heat rub is to be used as well. The patient states understanding and agrees with plan of care. IF Signed and Approved by: ADRIEL LLOYD . 02/09/2022 17:09:00[facility] Future App[facility]ments Appointment Date:06/25/2023 10:15:00 AM Scheduled Provider:Angel BRIGGS MD Location:[facility] Appointment Type:URO Office Visit [facility] evaluation + Plan note Future Appointments Appointment Date:06/30/2024 09:15:00 AM Scheduled Provider:Angel BRIGGS MD Location:[facility] Appointment Type:URO Office Visit [facility] evaluation note* Diagnosis Left knee pain, unspecified chronicity- Primary Arthritis of left knee Internal derangement of left knee documented in this encounter [facility] Healthcare[facility]* Diagnosis Diabetes mellitus due to underlying condition with diabetic polyneuropathy, unspecified whether superintendent [employer] terminal insulin use ([facility])- Primary Onychomycosis Dermatophytosis of nail Toe pain, bilateral Venous insufficiency Unspecified venous (peripheral) insufficiency documented in this encounter [facility] HealthcareEvaluation note* Diagnosis Preop examination- Primary Unspecified pre-operative examination Hypertension, unspecified type Type 2 diabetes mellitus without complication, unspecified whether superintendent marine oil terminal insulin use ([facility]) Preop examination Unspecified pre-operative examination Hypertension, unspecified type Type 2 diabetes mellitus without complication, unspecified whether nursing home insulin use ([facility]) documented in this encounter [facility] System[facility]* Diagnosis Benign essential hypertension ([facility])- Primary Essential hypertension, benign Type 2 diabetes mellitus with hypoglycemia without coma, without long-term current use of insulin ([facility]) Flu vaccine need Mixed hyperlipidemia ([facility]) Mixed hyperlipidemia Primary osteoarthritis of both knees documented in [facility] encounter [facility]* Diagnosis Diabetes mellitus due to underlying condition with diabetic polyneuropathy, unspecified whether nursing home insulin use ([facility])- Primary Pain due to onychomycosis of toenails of both feet Venous insufficiency Unspecified venous (peripheral) insufficiency documented [facility] encounter [facility] Narrative - Reported* Type Description Date Medical History HTN Medical History Hyperlipidemia Medical History Uterine Cancer Medical History Kidney Cancer Surgical History Hysterectomy Surgical History appendectomy Surgical History 2/3 of kidney removed due to ca ncer Hospitalization History see above [facility] Other Hospital course Narrative No data available for this section [facility] progress note No data available for this section [facility] Singulex Summary Purpose Family History No Family History Records Found No data available for this section No Family History Records FoundNo Family History Records FoundNo Family History Records Found Advance Directives Latest Code Status on File Code Status Date Activated Date Inactivated Comments Full Code 09/25/2018 6:27 PM 09/29/2018 3:36 PM Reason for Referral Specialty Diagnoses / Procedures Referred By Contac t Referred To Contact Diagnoses Preop examination Hypertension, unspecified type Type 2 diabetes mellitus without complication, unspecified whether nursing home insulin use ([facility]) Procedures ECG 12 lead Lalito Echeverria, DO [address] [place] [address] Referral ID Status Reason Start Date Expiration Date V isits Requested Visits Authorized [id number] Pending Review 11/27/2023 11/26/2024 1 1 Specialty Diagnoses / Procedures Referred By Contac t Referred To Contact Diagnoses Internal derangement of left knee Procedures MR lower extremity joint left wo IV contrast Lalito Echeverria DO [address] [place] [address] [facility] [address] [place] [address] Phone: [phone] Referral ID Status Reason Start Date Expiration Date V isits Requested Visits Authorized [id number] Pending Review 11/06/2023 05/04/2024 1 1 Additional Source Comments Care Team (unrecognized sect ion and content) Station Agent Relationship Specialty Start Date End Date Eduardo Rosen MD [address] [place] [address] PCP - Dave MOORE 07/25/22 Eduardo Rosen MD [address] [place] [address] PCP - General Internal Medicine 03/06/23 Station Agent Relationship Specialty Start Date End Date Eduardo Rosen MD [address] [place] [address] PCP - Dave MOORE 07/25/22 Eduardo Rosen MD [address] [place] [address] PCP - General Internal Medicine 03/06/23 Station Agent Relationship Specialty Start Date End Date Eduardo Rosen MD [address] [place] [address] PCP - Dave MOORE 07/25/22 Eduardo Rosen MD [address] [place] [address] PCP - General Internal Medicine 03/06/23 Station Agent Relationship Specialty Start Date End Date Eduardo Rosen MD [address] [place] [address] PCP - Dave MOORE 07/25/22 Eduardo Rosen MD [address] [place] [address] PCP - General Internal Medicine 03/06/23 Station Agent Relationship Specialty Start Date End Date Eduardo Rosen MD [address] [place] [address] PCP - General Internal Medicine 09/03/18 Station Agent Relationship Specialty Start Date End Date Eduardo Rosen MD [address] [place] [address] PCP - Dave MOORE 07/25/22 Eduardo Rosen MD [address] [place] [address] PCP - General Internal Medicine 03/06/23 Station Agent Relationship Specialty Start Date End Date Eduardo Rosen MD [address] [place] [address] PCP - Dave MOORE 07/25/22 Eduardo Rosen MD [address] [place] [address] PCP - General Internal Medicine 03/06/23 Station Agent Relationship Specialty Start Date End Date Eduardo Rosen MD [address] [place] [address] PCP - Dave MOORE 07/25/22 Eduardo Rosen MD [address] [place] [address] PCP - General Internal Medicine 03/06/23 INFORMATION SOURCE (unrecogn ized section and content) DATE CREATED AUTHOR 01/25/2023 [facility] DATE CREATED AUTHOR AUTHOR'S ORGANIZ ATION 12/06/2023 [facility] DATE CREATED AUTHOR AUTHOR'S ORGANIZ ATION 07/01/2024 [facility] EPIC DATE CREATED AUTHOR AUTHOR'S ORGANIZ ATION [facility]20[facility] REASON FOR VISIT (unrecogniz ed section and content) Reason Comments Follow-up Reason Comments DM Foot Care DM Nails Reason Comments DM Foot Care Dm Nails FOR RECORDS PERTAINING TO PATIENTS WHO ARE OR HAVE BEEN ENROLLED IN A CHEMICAL DEPENDENCY/SUBSTANCEABUSE PROGRAM, SOME INFORMATION MAY BE OMITTED. This clinical summary was aggregated from multiple sources. Caution should be exercised in using it in the provision of clinical care. This summary normalizes information from multiple sources, and as a consequence, information in this document may materially change the coding, format and clinical context of patient data. In addition, data may be omitted in some cases. CLINICAL DECISIONS SHOULD BE BASED ON THE PRIMARY CLINICAL RECORDS. [employer] [facility]. provides no warranty or guarantee of the accuracy or completeness of information in this document.
--- NOTE | 2024-07-18 11:52 | MR_ITS ---
[address] [address] Patient Name: JEANNE WEEMS MRN: [id number] date: 1940 Sex: F Assigned Patient Location: LAB Current Patient Location: Accession/Order Number: [id number] Exam Date: 07/18/2024 12:20 Report Date: 07/21/2024 06:44 At the request of: AGNES BRIGGS Procedure: MR abdomen wo/w con EXAMINATION: MR abdomen wo/w con HISTORY: Renal Cyst, History Of Cancer COMPARISON: CTA abdomen pelvis 12/24/2021 TECHNIQUE: A comprehensive MRI examination of the abdomen was performed to optimize visualization of suspected pathology. Images were obtained with and/or without intravenous Dotarem contrast as indicated by exam type. FINDINGS: LIVER: No enlargement, atrophy, abnormal signal, or significant focal lesion. BILIARY: No visible dilatation or calcification. PANCREAS: No lesion, fluid collection, ductal dilatation, or atrophy. SPLEEN: No enlargement or focal lesion. KIDNEYS: Several small cysts bilaterally favoring benign etiology. No abnormal enhancement or convincing mass. ADRENALS: No mass or enlargement. AORTA/VASCULAR: No aneurysm or dissection. RETROPERITONEUM: No mass or adenopathy. BOWEL/MESENTERY: No visible mass, obstruction, or bowel wall thickening. ABDOMINAL WALL: No mass or hernia. BONES: No bony lesion or fracture. LUNG BASES: No visible pleural disease. Lung bases not well assessed with MRI. OTHER: Negative. MR/MR abdomen wo/w con IMPRESSION: 1. Several small renal cysts bilaterally favoring benign etiology. Electronically authenticated by: KAMRAN MONTENEGRO Date: 07/21/2024 06:44
[2024-07-18 11:58] LABS: Estimated GFR (African America >60 (>=60 mL/min/1.73m^2); Estimated GFR (Non-African Ame >60 (>=60 mL/min/1.73m^2)
== END 2024-07-18 11:28 | disposition home or self-care (01) ==
LOC: LAB 11:30
PROVIDERS: PCP Internal Medicine; Visit Provider Urology
DX: N28.89 Other specified disorders of kidney and ureter (principal)
CPT/HCPCS: 36415; 74183; 82565; A9575